=== PATIENT | male | born 1940 | race Caucasian/White ===

== ENCOUNTER 2024-11-28 15:30 | Inpatient (IN) ==
--- NOTE | 2024-11-28 17:27 | History & Physical Report ---
Date of Service November 28, 2024 Assessment & Plan (1) Urine retention: (2) NIKOLAS (acute kidney injury): (3) Cancer of parotid gland: (4) Constipation: (5) Insomnia: (6) CAD (coronary artery disease): (7) History of coronary artery bypass graft: Plan 84 year old male with advanced squamous cell carcinoma of parotid presents as a direct admission from the [facility] with abdominal pain, distension, lack of bowel movement #NIKOLAS Suspect multifactorial with urinary retention causing most important etiology. In setting of cisplatin, furosemide and telmisartan these likely just made things worse. UA reassuring for just RBC without casts seen - urine is not grossly bloody therefore will still give VTE Prophylaxis Hold telmisartan and furosemide and monitor for fluid overload #Urine retention Abdominal distention due to urine retention rather than fecal impaction. Bladder enlarged on prior CT but suspect now worse given NIKOLAS - no need to rescan. POCUS with enlarged bladder and bladder scan estimated 1600ml. Freire catheter placed on admission. 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 After discharge on 11/26 he was feeling improved however he did not have a bowel movement on day of discharge. Then on 11/27 he started getting return of his symptoms of lower abdominal pain progressively worse throughout his day. He did take x2 MiraLAX that night as directed by the discharging doctor to increase if not having bowel movements. He went for follow up with his oncologist today and due to increasing abdominal pain, lack of bowel movement, nausea and abdominal distension he was concerned for bowel obstruction and recommended admission. I spoke to his oncologist Dr Laureano earlier today and accepted him for admission. He received 1L NSS at the [facility] earlier today. Since I spoke to Dr Laureano the patient has had two small bowel movements. On CT from last admission he was noted to have a large bladder and this was told to him at the time but he cannot remember getting a bladder scan. He reports difficulty urinating and not being able to urinate today very much at all. He reports chronic terminal dribbling. He takes tamsulosin every since he had trouble removing the urinary catheter following coronary artery bypass surgery in August 2023. He denies any other urinary complaints. No fever, chills or flank pain. His last chemotherapy on discussion with Dr Laureano was cisplatin approximately 1 week ago. Allergies Allergy/AdvReac Type Severity Reaction Status Date / Time acetaminophen [From Percocet] Allergy Unknown Unverified 11/24/24 08:25 latex Allergy Unknown Unverified 11/24/24 08:25 oxycodone [From Percocet] Allergy Unknown Unverified 11/24/24 08:25 Home Medications Medication Instructions Recorded Confirmed Type aspirin 81 mg tablet,delayed 81 mg PO DAILY 01/06/24 11/05/24 History release (Adult Aspirin Regimen) coenzyme Q10 400 mg capsule (Co 400 mg PO DAILY 01/06/24 11/05/24 History Q-10) loratadine 10 mg tablet (Claritin) 10 mg PO DAILY 01/06/24 11/05/24 History evolocumab 140 mg/mL subcutaneous 140 mg subcut .q14 days #2 mL 03/18/24 11/05/24 Rx pen injector (Sen Tse) metoprolol succinate 50 mg 50 mg PO DAILY #90 tabs 03/18/24 11/05/24 Rx tablet,extended release 24 hr pantoprazole 20 mg tablet,delayed 20 mg PO PM #90 tabs 03/18/24 09/19/24 Rx release tamsulosin 0.4 mg capsule 0.4 mg PO DAILY #90 caps 03/18/24 11/05/24 Rx furosemide 40 mg tablet 40 mg PO DAILY #90 tabs 05/08/24 11/05/24 Rx potassium chloride 10 mEq 10 meq PO DAILY #90 caps 06/02/24 11/05/24 Rx capsule,extended release glucosamine 750 mg-chondroit 100 1 tab PO DAILY 07/07/24 11/05/24 History mg-msm-D3 25 kek-zokq-qys bor tablet magnesium glycinate 118 mg PO DAILY 07/07/24 11/05/24 History pktttxkp-wey-nscnz acid 0.4 1 tab PO DAILY 07/07/24 11/05/24 History mg-lycopene 300 mcg-lutein 250 mcg tablet (Centrum Silver) zinc acetate 25 mg (zinc) capsule 25 mg PO DAILY 07/07/24 11/05/24 History telmisartan 40 mg tablet 20 mg PO BID 08/19/24 11/05/24 History albuterol sulfate 90 mcg/actuation 2 inh inhalation QID PRN shortness 09/01/24 11/05/24 Rx aerosol inhaler of breath or wheezing #8.5 grams alprazolam 0.25 mg tablet 0.25 mg PO .qhs PRN sleep #90 tabs 10/09/24 11/05/24 Rx ascorbic acid (vitamin C) 1,000 mg 1 g PO BID 11/05/24 11/05/24 History capsule ciprofloxacin HCl 500 mg tablet 500 mg PO BID #8 tabs 11/26/24 Rx metronidazole 500 mg tablet 500 mg PO TID #8 tabs 11/26/24 Rx Past Med/Surg History Problem List (Updated 11/29/24 @ 07:09 by Joseluis Pabon MD) Constipation Urine retention Stercoral colitis (Acute) Transaminitis (Acute) Generalized weakness (Acute) NIKOLAS (acute kidney injury) (Acute) Syncope and collapse (Acute) Cancer of parotid gland (Chronic) CLL (chronic lymphocytic leukemia) Recurrent left pleural effusion History of nonmelanoma skin cancer Postlaminectomy syndrome GERD (gastroesophageal reflux disease) Nephrolithiasis Hypertension Hyperlipidemia Mild aortic stenosis Moderate mitral regurgitation Former smoker CKD (chronic kidney disease) Insomnia CAD (coronary artery disease) Medical History Atrial fibrillation Surgical History History of cataract surgery b/l S/P laminectomy C spine at [facility] S/P cholecystectomy History of heart artery stent History of coronary artery bypass graft Family History Mother Colorectal cancer Father Heart disease Uncle Heart disease Denies family history of Ovarian cancer Prostate cancer Myocardial infarction Breast cancer Social History Smoking Status: Former smoker Tobacco Type: Cigarettes Age Started Using Tobacco: 17; Age Quit Using Tobacco: 28; packs per day: 0.5; Second Hand Exposure: No; Do You Dip or Chew Tobacco: No; Tobacco Cessation Education Requested by Patient: No Hx Alcohol Use: No Hx Substance Use: No Preferred Language: Yi Communication Ability: Effective Hearing Ability: Normal Tearoom Host/Hostess Required: No Beliefs That Will Affect Care: None Current Living Situation: Spouse current occupation: Retired Other Information That Helps Us Care for You: No Feels Safe at Home: Yes Safety Concerns: Feels Safe At This Time Diet: regular Diet Comment: has to be careful post op with chewing; Seatbelt Use: always Assistive Devices: Cane Review of Systems Review of Systems: All systems reviewed & are unremarkable except as noted in HPI & below Physical Exam Constitutional: WD/WN, vitals as above Eyes: Right eye lid dropping (since parotid gland surgery) ENMT: Mouth: + dry oral mucous membranes Respiratory: normal respiratory effort, lungs clear to auscultation Cardiovascular: RRR, no murmur, no edema Gastrointestinal (Abdomen): Inspection/Auscultation: + abdomen distended (lower abdominal distension (resolved with freire catheter placement)) Percussion/Palpation: + abdomen tender (lower abdomen) and abdomen soft Musculoskeletal: no cyanosis or clubbing, extremities motor strength 5/5 Skin: no rashes, warm and dry Psychiatric: A+Ox3, euthymic affect Results & Data Results & Data Vital Signs (Past 12 Hours) Vital Signs Temp Pulse Resp BP Pulse Ox O2 Del Method 11/28/24 16:32 36.6 C 83 16 170/71 H 98 Room Air Laboratory Results Abnormal lab results 11/28/24 11/28/24 Range/Units 17:18 Unknown RBC 4.46 L (4.70-6.10) M/uL Hgb 12.6 L (14.0-18.0) g/dl Hct 36.6 L (42.0-52.0) % Neut # (Auto) 7.37 H (1.40-6.50) K/uL Lymph # (Auto) 0.46 L (1.20-3.40) K/uL Sodium 129 L (136-145) mmol/L Chloride 95 L (98-107) mmol/L Anion Gap 12 H (3-11) BUN 86 H (6-23) mg/dl Creatinine 4.72 H* (0.6-1.4) mg/dl Glucose 125 H (70-99(Fasting)) mg/dl Phosphorus 5.6 H (2.5-4.9) mg/dl Alkaline Phosphatase 110 H (34-104) U/L Urine Blood 3+ H (Negative) Urine RBC (Auto) >20 H (0-2) /hpf Diagnostic Findings Abdominal radiograph, one view History: Abdominal pain Comparison: 11/25/2024 Findings: Single AP view of the abdomen performed. The bowel gas pattern appears nonobstructive. Mild air throughout the large bowel. There is a nonspecific paucity of small bowel gas. No pneumatosis or portal venous gas. No abnormal calcifications project over the abdomen. No acute abnormality of the bony structures. Impression: Nonobstructive bowel gas pattern. Code Status & VTE Plan Code Status Full VTE Prophylaxis Plan VTE Prophylaxis will be ordered: Yes PG Care Time/CCT Total # of Minutes Spent Total Time Spent with Patient: Total time spent is greater than 50% in coordination of care (as documented) at patient's floor/unit and/or counseling patient: Coding Level of Care Code 91496 INT INP/OBS CARE 3/75MIN Diagnoses Urine retention R33.9 NIKOLAS (acute kidney injury) N17.9 Cancer of parotid gland C07 Constipation K59.00 Insomnia G47.00 CAD (coronary artery disease) I25.10 History of coronary artery bypass graft Z95.1
[2024-11-28 17:34] LABS: Hematocrit (blood only) 36.6 % (42.0-52.0); Hemoglobin 12.6 g/dl (14.0-18.0); Mean Corpuscular Hemoglobin 28.3 pg (25.0-34.0); Mean Corpuscular Hgb Conc 34.4 g/dL (32.0-36.0); Mean Corpuscular Volume 82.1 fL (80.0-100.0); Platelet Count 188 K/uL (130-400); RDW Coefficient of Variation 13.5 % (11.5-14.5); RDW Standard Deviation 40.4 fL (36.4-46.3); Red Blood Count 4.46 M/uL (4.70-6.10); White Blood Count 8.13 K/ul (4.8-10.8)
[2024-11-28 17:50] LABS: Eosinophils # (auto) 0.04 K/uL (0.00-0.50); Eosinophils % (auto) 0.5 %; Immature Granulocytes # (auto) 0.05 K/uL (0.01-0.20); Immature Granulocytes % (auto) 0.6 %; Lymphocytes # (auto) 0.46 K/uL (1.20-3.40); Lymphocytes % (auto) 5.7 %; Monocytes # (auto) 0.21 K/uL (0.11-0.59); Monocytes % (auto) 2.6 %; Neutrophils # (auto) 7.37 K/uL (1.40-6.50); Neutrophils % (auto) 90.6 %
[2024-11-28 18:10] LABS: Albumin Globulin Ratio 1.3 (0.9-2); BUN Creatinine Ratio 18.2 (10-20); Bilirubin,Total 0.5 mg/dl (0.2-1.0); Calcium 8.8 mg/dl (8.6-10.3); Creatinine Clr Calc Pharmacy 14.1 ml/min; Globulin 3.2 gm/dl (2.5-4.0); Magnesium 2.1 mg/dl (1.7-2.4); Phosphorus 5.6 mg/dl (2.5-4.9); Potassium 4.3 mmol/L (3.5-5.1); Total Protein 7.3 gm/dl (6.0-8.3)
[2024-11-28] MEDS: FUROSEMIDE 40 MG TAB PO SCH (18:19)
--- NOTE | 2024-11-28 18:23 | XRay Report ---
Abdominal radiograph, one view History: Abdominal pain Comparison: 11/25/2024 Findings: Single AP view of the abdomen performed. The bowel gas pattern appears nonobstructive. Mild air throughout the large bowel. There is a nonspecific paucity of small bowel gas. No pneumatosis or portal venous gas. No abnormal calcifications project over the abdomen. No acute abnormality of the bony structures. Impression: Nonobstructive bowel gas pattern. Nonspecific paucity of small bowel gas. Fluid-filled loops of bowel are not excluded. Electronically signed by Devin Montes De Oca 11-28-2024 6:22 PM
[2024-11-28 18:24] LABS: Partial Thromboplastin Time 26 Seconds (21-31); Prothrombin Time 11.1 Seconds (9.0-12.0)
[2024-11-28] MEDS: METOPROLOL SUCC 50MG EXT REL TAB PO SCH (18:48)
[2024-11-28] MEDS: SODIUM CHLORIDE 0.9% 1,000 ML IV SCH (18:49)
[2024-11-28 19:21] LABS: Appearance Urine Clear (Clear); Bacteria Urine Automated None Seen (None Seen); Bilirubin Urine Negative (Negative); Blood Urine 3+ (Negative); Cast Urine Automated 0-2 /lpf (0-2); Color Urine Yellow; Epithelial Cell Urine Auto 0-2 /hpf (0-2); Glucose Urine UA Negative (Negative); Ketones Urine Negative (Negative); Leukocyte Esterase Urine Negative (Negative); Nitrite Urine Negative (Negative); Protein Urine Negative (Negative); RBC Urine Automated >20 /hpf (0-2); Specific Gravity Urine 1.007 (1.000-1.030); Urobilinogen Urine Negative (Negative); WBC Urine Automated 0-5 /hpf (0-5); pH Urine 5.5 (4.5-7.5)
[2024-11-28 19:31] VITALS: RESP 18
[2024-11-28] MEDS ORDERED: LOSARTAN POTASSIUM 25 MG TAB PO SCH (21:00)
[2024-11-28] MEDS: HEPARIN SOD 5,000 UNIT/0.5 ML VIAL SQ SCH (21:30)
[2024-11-28] MEDS: ALPRAZolam 0.25 MG TABLET PO SCH (21:30)
[2024-11-28] MEDS: TAMSULOSIN HCL 0.4 MG CAP PO SCH (21:31)
[2024-11-28] MEDS: PANTOprazole 40 MG TAB PO SCH (21:31)
[2024-11-29 06:16] LABS: Hematocrit (blood only) 30.9 % (42.0-52.0); Hemoglobin 10.8 g/dl (14.0-18.0); Mean Corpuscular Hemoglobin 28.4 pg (25.0-34.0); Mean Corpuscular Volume 81.3 fL (80.0-100.0); Mean Platelet Volume 10.5 fL (9.4-12.4); Platelet Count 165 K/uL (130-400); RDW Coefficient of Variation 13.4 % (11.5-14.5); RDW Standard Deviation 39.7 fL (36.4-46.3); White Blood Count 6.48 K/ul (4.8-10.8)
[2024-11-29 06:26] LABS: BUN Creatinine Ratio 19.5 (10-20); Calcium 8.4 mg/dl (8.6-10.3); Creatinine Clr Calc Pharmacy 15.9 ml/min; Potassium 4.7 mmol/L (3.5-5.1)
[2024-11-29] MEDS: POLYETHYLENE (MIRALAX) 17 GM PACK PO SCH (09:07)
[2024-11-29] MEDS: ASPIRIN 81 MG ECTAB PO SCH (09:09)
[2024-11-29] MEDS: LORATADINE 10 MG TAB PO SCH (19:59)
--- NOTE | 2024-11-29 20:48 | Hospitalist Progress Note ---
Date of Service November 29, 2024 Assessment & Plan (1) Urine retention: (2) NIKOLAS (acute kidney injury): (3) Cancer of parotid gland: (4) Constipation: (5) Insomnia: (6) CAD (coronary artery disease): (7) History of coronary artery bypass graft: Plan 84 years old male with PMH of FULL CODE @ home, obesity with BMI 30.0 (height 180.34 cm; weight 97.52 kg), CAD s/p 3 vessel CABG (January 2024), CLL presumably causing recurrent left-sided pleural effusion s/p thoracenteses #1 (04/09/2024) through #7 (08/21/2024), followed by serendipitous inpatient PET scan (09/04/2024) as ordered by patient's Heme-Onc Dr. Peterson Laureano and which revealed "Three markedly FDG avid nodules/lymph nodes within the right neck, two of which are within the right parotid gland and the third likely represents a right level 2 lymph node. 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 Alee Mackey and chemotherapy (next chemotherapy session is scheduled for 12/11/2024) with [facility] Heme-Onc Dr. Peterson Laureano. Patient was subsequently admitted to the inpatient hospitalist service @ [facility] on 11/28/2024 with the following diagnoses: 1. Acute kidney injury, due to a combination of acute urinary retention, cisplatin, furosemide, and telmisartan. #Acute kidney injury Suspect multifactorial etiology with urinary retention, cisplatin, furosemide, and telmisartan. UA reassuring for just RBC without casts seen - urine is not grossly bloody therefore will still give VTE Prophylaxis Hold telmisartan and furosemide and monitor for fluid overload #Urine retention Abdominal distention due to urine retention rather than fecal impaction. Bladder enlarged on prior CT but suspect now worse given NIKOLAS - no need to rescan. POCUS with enlarged bladder and bladder scan estimated 1600ml. Freire catheter placed on admission. 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 Currently on chemoradiation #CAD s/p CABG January 2024 Continue aspirin, metoprolol, Repatha (as outpatient) VTE Prophylaxis - heparin 5000 units SQ BID Disposition - admit to med/surg Admission and Anticipated Discharge Date Admission Date: November 28, 2024 Subjective "I am ok. No complaints right now." Review of Systems Constitutional: Negative for antecedent/coincident fevers, chills, diaphoresis, cough, wheeze, sore throat, hemoptysis, chest pains, palpitations, pleurisy, nausea, vomiting, diarrhea, abdominal pain, pelvic pain, hematemesis, hematochezia, melena, hematuria, dysuria, frequency, urgency, headaches, dizziness, lightheadedness, visual changes, hearing changes, weakness, falls, syncope, trauma, travel history, sick contacts, or food/drug ingestions novel or new. All other review of systems are reported as negative by the patient on 11/29/2024. Physical Exam Constitutional: General: Comfortable, coherent, cooperative. Wide awake and alert. Not confused, lethargic, or obtunded. Patient speaks in complete, fluent, and articulate sentences without pause, cough, or wheeze, with O2 sat 97% on room air (11/29/2024, 7:12pm). HEENT: Normocephalic, atraumatic. Extra-ocular muscles intact. Pupils equally round and reactive to light. No nystagmus, gaze paresis, anisocoria, miosis, mydriasis, hyphema, scleral injection, conjunctivitis, or pterygium. No otorrhea. No pharyngeal erythema, edema, or discharge. Neck: Supple, no stridor, bruit, goiter, or hepato-jugular reflux. Jugular venous pressure is estimated to be 3 cm above the sternal angle of Jose G, which in turn, is 5 cm above the level of the right atrium; with jugu lar venous pressure estimated to be 8 cm, then, there is no jugular venous distention on 11/29/2024. Lymphatics: No cervical (anterior/posterior), supraclavicular, infraclavicular, axillary, epitrochlear, or inguinal adenopathy. Chest: Symmetric rise and fall with respirations. Non-tender to palpation. Lungs: Clear to auscultation and percussion. No audible expi ratory wheeze, egophony, pectoriloquy, increase in tactile fremitus, or flatness/dullness to percussion at the bases. Heart: Regular rate and rhythm. S1 and S2 noted. No S3 or S4 summation gallop. No tripartite friction rub. Grade II/ early systolic murmur @ LLSB without radiation to the carotids, axilla, or back, and which remains invariant in regards to the respiratory cycle. Abdomen: Soft, non-tender, non-distended. No rebound, guarding, Faria's sign, or organomegaly. Bowel sounds auscultated in all 4 quadrants. Extremities: No clubbing, cyanosis, or edema in upper extremities or lower extremities bilaterally. 2+ pedal pulses bilaterally. Skin: No decubitus ulcer or enanthem. Genito-urinary: No urethral discharge. + freire catheter with 600 cc of clear yellow urine. Neurology: Alert and oriented in regards to person, place, time, and situation. DTR+ and symmetric. 5/5 motor strength in all 4 extremities, both proximally and distally. No pronator drift. No facial droop. No dysarthria. Psychiatry: No homicidal ideation. No suicidal ideation. No flat affect; smiles appropriately. Results & Data Results & Data Vital Signs (Past 12 Hours) Vital Signs Temp Pulse Resp BP Pulse Ox O2 Del Method 11/29/24 19:12 36.8 C 70 18 141/63 H 97 Room Air 11/29/24 14:49 36.4 C L 68 18 128/61 99 Room Air Laboratory Results Abnormal lab results 11/29/24 Range/Units 05:45 RBC 3.80 L (4.70-6.10) M/uL Hgb 10.8 L (14.0-18.0) g/dl Hct 30.9 L (42.0-52.0) % BUN 82 H (6-23) mg/dl Creatinine 4.20 H D (0.6-1.4) mg/dl Glucose 120 H (70-99(Fasting)) mg/dl Calcium 8.4 L (8.6-10.3) mg/dl PG Care Time/CCT Total # of Minutes Spent Total Time Spent with Patient: Total time spent is greater than 50% in coordination of care (as documented) at patient's floor/unit and/or counseling patient: Coding Level of Care Code 48611 SUB INP/OBS CARE 2/35MIN Diagnoses Urine retention R33.9 NIKOLAS (acute kidney injury) N17.9 Cancer of parotid gland C07 Constipation K59.00 Insomnia G47.00 CAD (coronary artery disease) I25.10 History of coronary artery bypass graft Z95.1
[2024-11-30 06:55] LABS: BUN Creatinine Ratio 21.5 (10-20); Calcium 8.4 mg/dl (8.6-10.3); Creatinine Clr Calc Pharmacy 20.5 ml/min; Potassium 4.4 mmol/L (3.5-5.1)
--- NOTE | 2024-11-30 21:51 | Hospitalist Progress Note ---
Date of Service November 30, 2024 Assessment & Plan (1) Urine retention: (2) NIKOLAS (acute kidney injury): (3) Cancer of parotid gland: (4) Constipation: (5) Insomnia: (6) CAD (coronary artery disease): (7) History of coronary artery bypass graft: Plan 84 years old male with PMH of FULL CODE @ home, obesity with BMI 30.0 (height 180.34 cm; weight 97.52 kg), CAD s/p 3 vessel CABG (08/23/2023, Cardio- Thoracic Surgeon Dr. Nato Thomas, [place], [place]) on evolocumab 140mg SQ q14 days, CLL, s/p treatment with acalabrutinib (Calquence) 100mg PO daily (starting on 07/05/2024, stopping on 09/01/2024, now off Calquence as patient's WBC always remained normal even prior to initiation of Calquence), a Lloa's tyrosine kinase inhibitor, followed by recurrent left- sided pleural effusion s/p thoracenteses #1 (04/09/2024) through #7 ( 08/21/2024), followed by serendipitous inpatient PET scan (09/04/2024) as ordered by patient's Heme-Onc Dr. Peterson Laureano and which revealed "Three markedly FDG avid nodules/lymph nodes within the right neck, two of which are within the right parotid gland and the third likely represents a right level 2 lymph node. 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) with [facility] RAD ONC Dr. Alee Mackey, and cisplatin chemotherapy cycle #1 (11/20/2024, 9:00am)(next cisplatin chemotherapy cycle #2 is scheduled for 12/11/2024, 9:00am) with [facility] Heme-Onc Dr. Peterson Laureano. Patient was subsequently admitted to the inpatient hospitalist service @ [facility] on 11/28/2024 with the following diagnoses: 1. Acute kidney injury, due to a combination of acute urinary retention, ci splatin, furosemide, and telmisartan. #Acute kidney injury Suspect multifactorial etiology with urinary retention, cisplatin, furosemide, and telmisartan. UA reassuring for just RBC without casts seen - urine is not grossly bloody therefore will still give VTE Prophylaxis Hold telmisartan and furosemide and monitor for fluid overload; check repeat creatinine level in the 12/01/2024 am, and if creatinine level continues downward trend, patient will be discharged on 12/01/2024 am, so that patient may undergo next XRT session session scheduled for 12/01/2024, 12:05pm @ [facility] @ [facility]) with [facility] RAD ONC Dr. Alee Mackey. #Urine retention Abdominal distention due to urine retention rather than fecal impaction. Bladder enlarged on prior CT but suspect now worse given NIKOLAS - no need to rescan. POCUS with enlarged bladder and bladder scan estimated 1600ml. Freire catheter placed on admission. 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 s/p XRT (next XRT session is scheduled for 12/01/2024, 12:05pm @ [facility] @ [facility]) with [facility] RAD ONC Dr. Alee Mackey, and cisplatin chemotherapy cycle #1 (11/20/2024, 9:00am)(next cisplatin chemotherapy cycle #2 is scheduled for 12/11/2024, 9:00am) with [facility] Heme-Onc Dr. Peterson Laureano. #CAD s/p CABG January 2024 Continue aspirin, metoprolol, evolocumab 140mg SQ q14 days (as outpatient) VTE Prophylaxis - heparin 5000 units SQ BID Disposition - admit to med/surg Admission and Anticipated Discharge Date Admission Date: November 28, 2024 Subjective "I feel fine today. No complaints." Review of Systems Constitutional: Negative for antecedent/coincident fevers, chills, diaphoresis, cough, wheeze, sore throat, hemoptysis, chest pains, palpitations, pleurisy, nausea, vomiting, diarrhea, abdominal pain, pelvic pain, hematemesis, hematochezia, melena, hematuria, dysuria, frequency, urgency, headaches, dizziness, lightheadedness, visual changes, hearing changes, weakness, falls, syncope, trauma, travel history, sick contacts, or food/drug ingestions novel or new. All other review of systems are reported as negative by the patient on 11/30/2024. Physical Exam Constitutional: General: Comfortable, coherent, cooperative. Wide awake and alert. Not confused, lethargic, or obtunded. Patient speaks in complete, fluent, and articulate sentences without pause, cough, or wheeze, with O2 sat 96% on room air (11/30/2024, 8:42pm). HEENT: Normocephalic, atraumatic. Extra-ocular muscles intact. Pupils equally round and reactive to light. No nystagmus, gaze paresis, anisocoria, miosis, mydriasis, hyphema, scleral injection, conjunctivitis, or pterygium. No otorrhea. No pharyngeal erythema, edema, or discharge. Neck: Supple, no stridor, bruit, goiter, or hepato-jugular reflux . Jugular venous pressure is estimated to be 3 cm above the sternal angle of Jose G, which in turn, is 5 cm above the level of the right atrium; with jugular venous pressure estimated to be 8 cm, then, there is no jugular venous distention on 11/30/2024. Lymphatics: No cervical (anterior/posterior), supraclavicular, infraclavicular, axillary, epitrochlear, or inguinal adenopathy. Chest: Symmetric rise and fall with respirations. Non-tender to palpation. Lungs: Clear to auscultation and percussion. No audible expiratory wheeze, egophony, pectoriloquy, increase in tactile fremitus, or flatness/dullness to percussion at the bases. Heart: Regular rate and rhythm. S1 and S2 noted. No S3 or S4 summation gallop. No tripartite friction rub. Grade II/ early systolic murmur @ LLSB without radiation to the carotids, axilla, or back, and which remains invariant in regards to the respiratory cycle. Abdomen: Soft, non-tender, non-distended. No rebound, guarding, Faria's sign, or organomegaly. Bowel sounds auscultated in all 4 quadrants. Extremities: No clubbing, cyanosis, or edema in upper extremities or lower extremities bilaterally. 2+ pedal pulses bilaterally. Skin: No decubitus ulcer, exanthem, or enanthem. Genito-urinary: No urethral discharge. + freire catheter with 800 cc of clear ye llow urine. Neurology: Alert and oriented in regards to person, place, time, and situation. DTR+ and symmetric. 5/5 motor strength in all 4 extremities, both proximally and distally. No pronator drift. No facial droop. No dysarthria. Psychiatry: No homicidal ideation. No suicidal ideation. No flat affect; smiles appropriately Results & Data Results & Data Vital Signs (Past 12 Hours) Vital Signs Temp Pulse Resp BP Pulse Ox O2 Del Method 11/30/24 20:42 36.9 C 76 18 160/79 H 96 Room Air 11/30/24 14:59 36.5 C 71 18 158/75 H 98 Room Air Laboratory Results Creatinine 4.72 (11/28/2024, 5:18pm). Creatinine 4.20 (11/29/2024, 5:45am). Creatinine 3.25 (11/30/2024, 6:10am). PG Care Time/CCT Total # of Minutes Spent Total Time Spent with Patient: Total time spent is greater than 50% in coordination of care (as documented) at patient's floor/unit and/or counseling patient: Coding Level of Care Code 30275 SUB INP/OBS CARE 2/35MIN Diagnoses Urine retention R33.9 NIKOLAS (acute kidney injury) N17.9 Cancer of parotid gland C07 Constipation K59.00 Insomnia G47.00 CAD (coronary artery disease) I25.10 History of coronary artery bypass graft Z95.1
[2024-12-01 07:04] VITALS: BP 166/76; PULSE 75; TEMP 98.1; O2SAT 93
[2024-12-01 08:27] LABS: BUN Creatinine Ratio 22.5 (10-20); Calcium 8.5 mg/dl (8.6-10.3); Creatinine Clr Calc Pharmacy 26.8 ml/min; Potassium 4.3 mmol/L (3.5-5.1)
--- NOTE | 2024-12-01 15:03 | Discharge Summary ---
Discharge Summary Date of Service December 01, 2024 Principal Dx & Hospital Course #1 = Principal Diagnosis (1) Urine retention: (2) NIKOLAS (acute kidney injury): (3) Cancer of parotid gland: (4) Constipation: (5) Insomnia: (6) CAD (coronary artery disease): (7) History of coronary artery bypass graft: Plan 84 years old male with PMH of FULL CODE @ home, obesity with BMI 30.0 (height 180.34 cm; weight 97.52 kg), CAD s/p 3 vessel CABG (08/23/2023, Cardio- Thoracic Surgeon Dr. Nato Thomas, [place], [place]) on evolocumab 140mg SQ q14 days, CLL, s/p treatment with acalabrutinib (Calquence) 100mg PO daily (starting on 07/05/2024, stopping on 09/01/2024, now off Calquence as patient's WBC always remained normal even prior to initiation of Calquence), a Lola's tyrosine kinase inhibitor, followed by recurrent left- sided pleural effusion s/p thoracenteses #1 (04/09/2024) through #7 (08/21/2024), followed by serendipitous inpatient PET scan (09/04/2024) as ordered by patient's Heme-Onc Dr. Peterson Laureano and which revealed "Three markedly FDG avid nodules/lymph nodes within the right neck, two of which are within the right parotid gland and the third likely represents a right level 2 lymph node. 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 Alee Mackey, and cisplatin chemotherapy cycle #1 (11/20/2024, 9:00am)(next cisplatin chemotherapy cycle #2 is scheduled for 12/11/2024, 9:00am) with [facility] Heme-Onc Dr. Peterson Laureano. Patient was subsequently admitted to the inpatient hospitalist service @ [facility] on 11/28/2024 with the following diagnoses: 1. Acute kidney injury, due to a combination of acute urinary retention, cisplatin, home-scheduled furosemide 40mg PO daily, and home-scheduled telmisartan 40mg PO bid. The following medical issues were addressed while the patient remained in [facility] from 11/28/2024 through 12/01/2024: #Acute kidney injury, RESOLVING well. Suspect multifactorial etiology with urinary retention, cisplatin, furosemide, and telmisartan. UA reassuring for just RBC without casts seen - urine is not grossly bloody therefore will still give VTE Prophylaxis Held OFF home-scheduled telmisartan 40mg PO bid and furosemide 40mg PO daily while patient remained in [facility]. Subsequently, acute kidney injury is RESOLVING well, as shown by a progressive decline in creatinine levels: cf., creatinine 4.72 mg/dL (11/28/2024, 5:18pm). cf., creatinine 4.20 mg/dL (11/29/2024, 5:45am). cf., creatinine 3.25 mg/dL (11/30/2024, 6:10am). cf., creatinine 2.49 mg/dL (12/01/2024, 6:11am). 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 Alee Mackey. Patient will then go back to his home and will NOT resume his home-scheduled telmisartan 40mg PO bid and furosemide 40mg PO daily on arrival back to his home on 12/01/2024. Instead, patient was advised to undergo repeat creatinine level testing within 5-7 days of hospital discharge, and which may be performed by his PCP Dr. Catarina Johnson, in order to affirm continued resolution of acute kidney injury. Patient reports that he will comply with this recommendation. #Acute urinary retention, ONGOING. Abdominal distention due to urine retention rather than fecal impaction. Patient was subsequently treated with freire catheter in [facility] ER on 11/27/2024 and continues with freire catheter on hospital discharge home on 12/01/2024. Patient was advised to follow up with his PCP Dr. Catarina Johnson within 5-7 days of hospital discharge regarding how long freire catheter should remain in situ as patient already anticipates that he may suffer from urine retention until 12/31/2024, which is the date on which patient will receive his third and final dose of cisplatin chemotherapy with his Heme-Onc Dr. Peterson Laureano. In the interim, I advised the patient to maintain freire catheter in situ through 12/31/2024 with voiding trial on or after 12/31/2024, as cisplatin chemotherapy is deemed to be the principal culprit for patient's acute kidney injury, if not his acute urinary retention. In addition, patient was maintained on expulsive agent tamsulosin 0.4mg PO bid x 6 doses (11/28/2024 - 12/01/2024, 7:52am) while in [facility]. Patient will resume his home- scheduled tamsulosin 0.4mg PO daily on hospital discharge home on 12/01/2024. #Constipation, RESOLVED. Suspect his bowels were somewhat affected by his large bladder; subsequently, constipation improved after freire catheter insertion in [facility] ER on 11/27/2024. #Advanced squamous cell carcinoma of parotid, ONGOING. s/p surgery. s/p XRT (next XRT session is scheduled for 12/01/2024, 12:05pm @ [facility] @ [facility]) with [facility] RAD ONC Dr. Alee Mackey, and cisplatin chemotherapy cycle #1 (11/20/2024, 9:00am)(next cisplatin chemotherapy cycle #2 is scheduled for 12/11/2024, 9:00am) with [facility] Heme-Onc Dr. Peterson Laureano. #CAD s/p CABG January 2024 Patient received secondary prophylaxis against CAD utilizing his home-scheduled aspirin 81mg PO daily and metoprolol succinate 50mg PO daily while in [facility]. Patient will continue both home-scheduled medications on hospital discharge home on 12/01/2024. Patient did not receive secondary prophylaxis against CAD utilizing his home-scheduled evolocumab 140mg SQ q14 days as this medication is not available on hospital formulary. Patient will resume his home-scheduled evolocumab 140mg SQ q14 days on hospital discharge home on 12/01/2024. VTE Prophylaxis - heparin 5000 units SQ BID Disposition. Code status, FULL CODE @ home. ACLS was never administered. There were no adverse events noted with this hospitalization. Condition of patient remains fair. 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 Alee Mackey. Patient will then go back to his home and follow up with his PCP Dr. Catarina Johnson within 5-7 days of hospital discharge for repeat creatinine level testing. Patient will also follow up with his Heme-Onc Dr. Peterson Laureano within 5-7 days of hospital discharge to discuss cisplatin-associated urticaria (which is noted for the first time on the right side of patient's face on hospital discharge date 12/01/2024). Patient will also follow up with his RAD ONC Dr. Alee Mackey on 12/01/2024 to discuss XRT-associated dermatitis (which is noted for the first time on the right side of patient's face on hospital discharge date 12/01/2024). Patient reports that he will comply with all of the above recommendations. Admission HPI Per Admitting Provider Chavo De La O is an 84 year old male with advanced squamous cell carcinoma of parotid s/p surgery on chemo/radiation who [facility] recent hospitalization for stercoral colitis requiring manual disimpaction. After discharge on 11/26 he was feeling improved however he did not have a bowel movement on day of discharge. Then on 11/27 he started getting return of his symptoms of lower abdominal pain progressively worse throughout his day. He did take x2 MiraLAX that night as directed by the discharging doctor to increase if not having bowel movements. He went for follow up with his oncologist today and due to increasing abdominal pain, lack of bowel movement, nausea and abdominal distension he was concerned for bowel obstruction and recommended admission. I spoke to his oncologist Dr Laureano earlier today and accepted him for admission. He received 1L NSS at the [facility] earlier today. Since I spoke to Dr Laureano the patient has had two small bowel movements. On CT from last admission he was noted to have a large bladder and this was told to him at the time but he cannot remember getting a bladder scan. He reports difficulty urinating and not being able to urinate today very much at all. He reports chronic terminal dribbling. He takes tamsulosin every since he had trouble removing the urinary catheter following coronary artery bypass surgery in August 2023. He denies any other urinary complaints. No fever, chills or flank pain. His last chemotherapy on discussion with Dr Laureano was cisplatin approximately 1 week ago. Discharge Exam Constitutional General: Comfortable, coherent, cooperative. Wide awake and alert. Not confused, lethargic, or obtunded. Patient speaks in complete, fluent, and articulate sentences without pause, cough, or wheeze, with O2 sat 93% on room air (12/01/2024, 7:02am). HEENT: Normocephalic, atraumatic. Extra-ocular muscles intact. Pupils equally round and reactive to light. No nystagmus, gaze paresis, anisocoria, miosis, mydriasis, hyphema, scleral injection, conjunctivitis, or pterygium. No otorrhea. No pharyngeal erythema, edema, or discharge. Neck: Supple, no stridor, bruit, goiter, or hepato-jugular reflux. Jugular venous pressure is estimated to be 3 cm above the sternal angle of Jose G, which in turn, is 5 cm above the level of the right atrium; with jugular venous pressure estimated to be 8 cm, then, there is no jugular venous distention on 12/01/2024. Lymphatics: No cervical (anterior/posterior), supraclavicular, infraclavicular, axillary, epitrochlear, or inguinal adenopathy. Chest: Symmetric rise and fall with respirations. Non-tender to palpation. Lungs: Clear to auscultation and percussion. No audible expiratory wheeze, egophony, pectoriloquy, increase in tactile fremitus, or flatness/dullness to percussion at the bases. Heart: Regular rate and rhythm. S1 and S2 noted. No S3 or S4 summation gallop. No tripartite friction rub. Grade II/ early systolic murmur @ LLSB without radiation to the carotids, axilla, or back, and which remains invariant in regards to the respiratory cycle. Abdomen: Soft, non-tender, non-distended. No rebound, guarding, Faria's sign, or organomegaly. Bowel sounds auscultated in all 4 quadrants. Extremities: No clubbing, cyanosis, or edema in upper extremities or lower extremities bilaterally. 2+ pedal pulses bilaterally. Skin: No decubitus ulcer or enanthem. Very mild exanthem involving puncta of erythema on right side of face (e.g., forehead and cheek, sparing the nose, nasal bridge, eye, conjunctiva, philtrum, lip) with excoriation, but no lichenification on 12/01/2024. No ulceration, edema, induration, warmth, tenderness, crepitus, fluctuance, discharge (sanguineous, serous, suppurative), malodor, or lymphangitic streaking. Genito-urinary: No urethral discharge. + freire catheter with 700 cc of clear yellow urine on 12/01/2024. Neurology: Alert and oriented in regards to person, place, time, and situation. DTR+ and symmetric. 5/5 motor strength in all 4 extremities, both proximally and distally. No pronator drift. No facial droop. No dysarthria. Psychiatry: No homicidal ideation. No suicidal ideation. No flat affect; smiles appropriately Discharge Plan Discharge Items Patient Disposition: Home - Self-Care Reason For Visit: NIKOLAS,URINE RETENTION Discharge Diagnosis: NIKOLAS, URINE RETENTION Condition on Discharge: Fair Activity: Resume your previous activity Lifting: Gradually increase as tolerated Bathing: No limitations Sexual Activity: When tolerated Exercise/Sports: Gradually increase as tolerated Driving/Machine Use: No limitations Weightbearing: Full weightbearing Non-emergency contact: Primary Care Provider Call non-emergency contact if: you have any medication questions Follow-up/Referrals: Alee Mackey MD [Physician] - (See Dr. Alee Mackey on 12/01/2024 during/after radiation therapy.) Catarina Johnson DO [Primary Care Provider] - 12/09/24 1:30 pm Peterson Laureano MD [Physician] - (See Dr. Peterson Laureano within 5-7 days.) Diet: Heart Healthy Addtl Attending Provider Instructions: See your PCP Dr. Catarina Johnson, your Heme-Onc Dr. Peterson Laureano, and your RAD ONC Dr. Alee Mackey, all within 5-7 days of hospital discharge. Pending Studies at Discharge: Yes Studies:: Repeat creatinine level within 5-7 days of hospital discharge. Stand-Alone Forms: [facility], Smoking Cessation Medications and DC Order Prescriptions: Continued Repatha SureClick 140 mg/mL pen injector 140 mg subcut .q14 days Qty: 2 3RF metoprolol succinate 50 mg tablet extended release 24 hr 50 mg PO DAILY Qty: 90 3RF pantoprazole 20 mg tablet,delayed release (DR/EC) 20 mg PO PM Qty: 90 3RF tamsulosin 0.4 mg capsule 0.4 mg PO DAILY Qty: 90 3RF potassium chloride 10 mEq capsule, extended release 10 meq PO DAILY Qty: 90 3RF alprazolam 0.25 mg tablet 0.25 mg PO .qhs PRN (Reason: sleep) Qty: 90 0RF [id number]-sae bor 750 mg-100 mg- 25 mcg tablet 1 tab PO DAILY magnesium glycinate 118 mg magnesium capsule 118 mg PO DAILY Centrum Silver 0.4 mg-300 mcg- 250 mcg tablet 1 tab PO DAILY zinc acetate 25 mg (zinc) capsule 25 mg PO DAILY aspirin [Adult Aspirin Regimen] 81 mg tablet,delayed release (DR/EC) 81 mg PO DAILY coenzyme Q10 [Co Q-10] 400 mg capsule 400 mg PO DAILY loratadine [Claritin] 10 mg tablet 10 mg PO DAILY ascorbic acid (vitamin C) 1,000 mg capsule 1 g PO BID albuterol sulfate 90 mcg/actuation HFA aerosol inhaler 2 inh inhalation QID PRN (Reason: shortness of breath or wheezing) Qty: 8.5 2RF Discontinued furosemide 40 mg tablet 40 mg PO DAILY Qty: 90 3RF telmisartan 40 mg tablet 20 mg PO BID metronidazole 500 mg Tablet 500 mg PO TID Qty: 8 0RF ciprofloxacin HCl 500 mg Tablet 500 mg PO BID Qty: 8 0RF No Action ondansetron HCl 8 mg tablet 8 mg PO Q8H PRN prochlorperazine maleate [Compazine] 10 mg tablet 10 mg PO Q6H PRN Discharge Orders: Discharge Order (Routine); Ordered 12/01/24 Ordered By: Casey Garza/Other Patient Handouts: Urinary Catheter Bag Empty Clean, Indwelling Urinary Catheter Dc, Leg Bag Care Dc Admission Data Admit Date/Time: 11/28/24 16:30 Attending Provider: Casey Nichols Admit Provider: Joseluis Pabon Primary Care Provider: Catarina Johnson Other Interventions: Discharge Summary Assessment (RN) Last Done: 12/01/24 11:35 Hospital Stay Data Pending Results Patient Have Any Pending Studies at Discharge: Yes Discharge Instructions Given to Patient (Per Discharging Provider) See your PCP Dr. Catarina Johnson, your Heme-Onc Dr. Peterson Laureano, and your RAD ONC Dr. Alee Mackey, all within 5-7 days of hospital discharge. Total Time Total Time Spent Total Time Spent (In Minutes): 35 Coding Level of Care Code 11075 INP/OBS DISCH >30 MIN Diagnoses Urine retention R33.9 NIKOLAS (acute kidney injury) N17.9 Cancer of parotid gland C07 Constipation K59.00 Insomnia G47.00 CAD (coronary artery disease) I25.10 History of coronary artery bypass graft Z95.1
== END 2024-12-01 12:00 | disposition home or self-care (01) | DRG 683 ==
LOC: SUATTDRO 16:30 → 3W 16:30

== ENCOUNTER 2025-01-04 22:50 | Inpatient (IN) ==
--- NOTE | 2025-01-04 23:01 | Emergency Department Note ---
Impression & Plan Dizziness, Acute dehydration, History of parotid cancer, Syncope ED Provider Note NAME: FABIANO PALMER AGE: 84 SEX: M : 1940 ARRIVES VIA: Ambulance INFORMANT: Patient, ED PROVIDER(S): Ravin Alarcon MD CHIEF COMPLAINT: Dizziness, lightheadedness, possible syncope MEDICAL DECISION MAKING: Patient presents with the above. IV fluids deferred as the patient's vital signs are stable at the bedside and the patient is going to be admitted as the patient was just discharged for similar symptoms. Patient's blood work shows a white count of 4.8 with hemoglobin 12.5 normal platelet count kidney function with a creat of 1.42 which is around what it was when he presented earlier today. Blood sugar 141. Patient reportedly had eaten upon arriving home. Patient's EKG does not show obvious arrhythmia. I did speak with the on-call hospital service Dr. Gaviria and the patient was admitted to the medicine service. Discussion w/ other healthcare providers: Dr. Gaviria inpatient medicine service Prior /Outside records reviewed: None Differential diagnosis: Benign positional vertigo, dehydration, hypovolemia, anemia, infection, hypoglycemia, electrolyte abnormalities, arrhythmia, tox among others were considered. Diagnostics, as interpreted by me: ECG: Normal sinus rhythm, rate of 65, normal intervals no obvious STEMI. Cardiac monitoring: An order was placed for continuous cardiac monitoring. The monitor shows a rate of 65 with sinus rhythm. Patient was placed on pulse oximetry Medical decision rules: None Imaging studies: None HPI: Patient presents due to concern for lightheadedness and dizziness. Patient had been seen by myself earlier in the day and discharged for similar symptoms. The patient states though that when he was seated he was experiencing lightheadedness and dizziness and may have passed out according to his . Patient states that when he returned home he did drink water and had a protein shake. The patient denies any vomiting or diarrhea no chest pain or shortness of breath. PAST MEDICAL HISTORY: See Below PAST SURGICAL HISTORY: See Below SOCIAL HISTORY: See Below HOME MEDICATIONS: See Below ALLERGIES: See Below VITALS: See Below PHYSICAL EXAMINATION: GENERAL: NAD, non-toxic. EYE EXAM: Normal conjunctiva. PERRL, no anisocoria and EOM's grossly intact w/o pain. OROPHARYNX: Moist mucus membranes, grossly normal dentition. NECK: Trachea midline, no stridor. LUNGS: Clear to auscultation. Normal chest wall mechanics. HEART: NSR, no MRG. ABDOMEN: Abdomen soft, non-tender, no masses, no rebound or guarding. BACK: No CVA TTP. SKIN: No rashes and no bruising. UPPER EXTREMITIES: Upper extremities are grossly normal. LOWER EXTREMITIES: Grossly normal, no edema. NEURO EXAM: Awake and alert, follows commands, no obvious facial asymmetry, normal speech, moves all 4 extremities. Past Med/Surg History Problem List (Updated 01/05/25 @ 00:06 by Ravin Alarcon MD) Syncope (Acute) History of parotid cancer (Acute) Acute dehydration (Acute) Dizziness (Acute) Hypomagnesemia (Acute) Acute dehydration (Acute) Dizziness (Acute) Constipation Stercoral colitis (Acute) Syncope and collapse (Acute) Cancer of parotid gland (Chronic) CLL (chronic lymphocytic leukemia) Recurrent left pleural effusion Postlaminectomy syndrome Nephrolithiasis (Chronic) Mild aortic stenosis Moderate mitral regurgitation Former smoker CKD (chronic kidney disease) Insomnia Medical History Transaminitis NIKOLAS (acute kidney injury) History of nonmelanoma skin cancer GERD (gastroesophageal reflux disease) Hypertension Hyperlipidemia CAD (coronary artery disease) Atrial fibrillation Surgical History History of cataract surgery b/l S/P laminectomy C spine at [facility] S/P cholecystectomy History of heart artery stent History of coronary artery bypass graft Family History Mother Colorectal cancer Father Heart disease Uncle Heart disease Denies family history of Ovarian cancer Prostate cancer Myocardial infarction Breast cancer Social History Smoking Status: Former smoker Tobacco Type: Cigarettes Age Started Using Tobacco: 17; Age Quit Using Tobacco: 28; packs per day: 0.5; Second Hand Exposure: No; Do You Dip or Chew Tobacco: No; Hx Alcohol Use: No Hx Substance Use: No Preferred Language: Yakut Communication Ability: Effective Hearing Ability: Normal Motor Vehicle Operator Road Supervisor Required: No Beliefs That Will Affect Care: None Current Living Situation: Spouse current occupational status: retired current occupation: Retired How many Children do You have: 4 Feels Safe at Home: Yes Childhood Exposure to Second-Hand Smoke: Yes Diet: regular Diet Comment: has to be careful post op with chewing; caffeine: Yes during the past year weight has: decreased > 10 lbs Dental Care, Regularly: Yes Physical Activity Frequency: 5-6 Times per Week Seatbelt Use: sometimes Assistive Devices: Cane Allergies Allergies Allergy/AdvReac Type Severity Reaction Status Date / Time acetaminophen [From Percocet] Allergy Unknown Verified 12/29/24 10:25 latex Allergy Unknown Verified 12/29/24 10:25 oxycodone [From Percocet] Allergy Unknown Verified 12/29/24 10:25 Home Meds Home Medications Medication Instructions Recorded Confirmed aspirin 81 mg tablet,delayed 81 mg PO DAILY 01/06/24 12/21/24 release (Adult Aspirin Regimen) coenzyme Q10 400 mg capsule (Co 400 mg PO DAILY 01/06/24 12/21/24 Q-10) loratadine 10 mg tablet (Claritin) 10 mg PO DAILY 01/06/24 12/21/24 glucosamine 750 mg-chondroit 100 1 tab PO DAILY 07/07/24 12/21/24 mg-msm-D3 25 iqn-qgej-owh bor tablet magnesium glycinate 118 mg PO DAILY 07/07/24 12/21/24 akgsuqzc-qyo-pkbhc acid 0.4 1 tab PO DAILY 07/07/24 12/21/24 mg-lycopene 300 mcg-lutein 250 mcg tablet (Centrum Silver) zinc acetate 25 mg (zinc) capsule 25 mg PO DAILY 07/07/24 12/21/24 ascorbic acid (vitamin C) 1,000 mg 1 g PO BID 11/05/24 12/21/24 capsule ondansetron HCl 8 mg tablet 8 mg PO Q8H PRN Nausea And Vomiting 12/01/24 12/21/24 prochlorperazine maleate 10 mg 10 mg PO Q6H PRN Nausea And 12/01/24 12/21/24 tablet (Compazine) Vomiting alprazolam 0.25 mg tablet 0.25 mg PO HS PRN sleep 12/16/24 12/29/24 ciprofloxacin HCl 500 mg tablet 500 mg PO BID 12/16/24 12/22/24 evolocumab 140 mg/mL subcutaneous 140 mg subcut Q14D 12/16/24 12/22/24 pen injector (Sen Tse) Previous Rx's Medication Instructions Recorded metoprolol succinate 50 mg 50 mg PO DAILY #90 tabs 03/18/24 tablet,extended release 24 hr pantoprazole 20 mg tablet,delayed 20 mg PO PM #90 tabs 03/18/24 release potassium chloride 10 mEq 10 meq PO DAILY #90 caps 06/02/24 capsule,extended release albuterol sulfate 90 mcg/actuation 2 inh inhalation QID PRN shortness 09/01/24 aerosol inhaler of breath or wheezing #8.5 grams furosemide 20 mg tablet 20 mg PO DAILY #30 tabs 12/04/24 tamsulosin 0.4 mg capsule 0.8 mg (2 x 0.4 mg) PO DAILY #180 12/19/24 caps Results & Data (ED) Vital Signs Vital Signs - 24 hr 01/04/25 22:57 01/04/25 23:04 01/04/25 23:06 Temperature 36.5 C Temperature Source Oral Pulse Rate 65 67 Respiratory Rate 20 Respiratory Effort / Characteristics Non-Labored Spontaneous Respiratory Depth Normal Blood Pressure 129/85 Blood Pressure Mean 99 Pulse Oximetry 97 99 Oxygen Delivery Method Room Air Room Air Sepsis Recent Fever Within 48 Hours No Sepsis New/Unexplained Change in Mental Status N/A Sepsis Action Taken by Nursing No Action Required 01/04/25 23:30 Temperature Temperature Source Pulse Rate 71 Respiratory Rate 20 Respiratory Effort / Characteristics Respiratory Depth Blood Pressure 144/93 H Blood Pressure Mean 104 Pulse Oximetry 98 Oxygen Delivery Method Sepsis Recent Fever Within 48 Hours Sepsis New/Unexplained Change in Mental Status Sepsis Action Taken by Jail Medications Current Medication List: was personally reviewed by me Laboratory Data Attestation: I reviewed the patient's lab results. 01/04/25 23:00 01/04/25 23:00 Lab Results 01/04/25 Range/Units 23:00 WBC 4.80 (4.8-10.8) K/ul RBC 4.28 L (4.70-6.10) M/uL Hgb 12.5 L (14.0-18.0) g/dl Hct 37.1 L (42.0-52.0) % MCV 86.7 (80.0-100.0) fL MCH 29.2 (25.0-34.0) pg MCHC 33.7 (32.0-36.0) g/dL RDW Std Deviation 48.2 H (36.4-46.3) fL RDW Coeff of Arian 15.3 H (11.5-14.5) % Plt Count 186 (130-400) K/uL MPV 9.9 (9.4-12.4) fL Immature Gran % (Auto) 0.2 % Neut % (Auto) 76.1 % Lymph % (Auto) 12.9 % [place] % (Auto) 7.9 % Eos % (Auto) 2.7 % Baso % (Auto) 0.2 % Neut # (Auto) 3.65 (1.40-6.50) K/uL Lymph # (Auto) 0.62 L (1.20-3.40) K/uL [place] # (Auto) 0.38 (0.11-0.59) K/uL Eos # (Auto) 0.13 (0.00-0.50) K/uL Baso # (Auto) 0.01 (0.00-0.20) K/uL Immature Gran # (Auto) 0.01 (0.01-0.20) K/uL Sodium 137 (136-145) mmol/L Potassium 4.4 (3.5-5.1) mmol/L Chloride 103 (98-107) mmol/L Carbon Dioxide 27 (21-32) mmol/L Anion Gap 7 (3-11) BUN 36 H (6-23) mg/dl Creatinine 1.42 H (0.6-1.4) mg/dl Est Cr Clr Drug Dosing 42.0 ml/min eGFR 49.03 BUN/Creatinine Ratio 25.4 H (10-20) Glucose 141 H (70-99(Fasting)) mg/dl Calcium 9.7 (8.6-10.3) mg/dl Administered Medications Lactated Ringer's (Lr) 500 mls @ 999 mls/hr IV .Q31M ONE Stop: 01/05/25 00:14 Last Admin: 01/04/25 23:52 Dose: 999 mls/hr Documented By: GRABIEL Discharge Plan Visit Data Chief Complaint: Weakness Stated Complaint: WEAKNESS, DEHYDRATED ED Provider: Ravin Alarcon Discharge Problem: Dizziness, Acute dehydration, History of parotid cancer, Syncope Patient Disposition: Admitted As Inpatient Condition: Good Forms Stand Alone Forms: My [facility] Prescriptions Prescriptions: No Action ondansetron HCl 8 mg tablet 8 mg PO Q8H PRN (Reason: Nausea And Vomiting) prochlorperazine maleate [Compazine] 10 mg tablet 10 mg PO Q6H PRN (Reason: Nausea And Vomiting) metoprolol succinate 50 mg tablet extended release 24 hr 50 mg PO DAILY Qty: 90 3RF pantoprazole 20 mg tablet,delayed release (DR/EC) 20 mg PO PM Qty: 90 3RF potassium chloride 10 mEq capsule, extended release 10 meq PO DAILY Qty: 90 3RF Rx Instructions: Unable to verify w/ pt at this date/time. Not on file w/ pharmacy as recent fill. furosemide 20 mg tablet 20 mg PO DAILY Qty: 30 2RF tamsulosin 0.4 mg capsule 0.8 mg PO DAILY Qty: 180 3RF jmaa-ebhmy-vca-D3-hyal-sae bor 750 mg-100 mg- 25 mcg tablet 1 tab PO DAILY Rx Instructions: Unable to verify OTC meds at this date/time. magnesium glycinate 118 mg magnesium capsule 118 mg PO DAILY Rx Instructions: Unable to verify OTC meds at this date/time. Centrum Silver 0.4 mg-300 mcg- 250 mcg tablet 1 tab PO DAILY Rx Instructions: Unable to verify OTC meds at this date/time. zinc acetate 25 mg (zinc) capsule 25 mg PO DAILY Rx Instructions: Unable to verify OTC meds at this date/time. aspirin [Adult Aspirin Regimen] 81 mg tablet,delayed release (DR/EC) 81 mg PO DAILY Rx Instructions: Unable to verify OTC meds at this date/time. coenzyme Q10 [Co Q-10] 400 mg capsule 400 mg PO DAILY Rx Instructions: Unable to verify OTC meds at this date/time. loratadine [Claritin] 10 mg tablet 10 mg PO DAILY Rx Instructions: Unable to verify OTC meds at this date/time. ascorbic acid (vitamin C) 1,000 mg capsule 1 g PO BID Rx Instructions: Unable to verify OTC meds at this date/time. albuterol sulfate 90 mcg/actuation HFA aerosol inhaler 2 inh inhalation QID PRN (Reason: shortness of breath or wheezing) Qty: 8.5 2RF ciprofloxacin HCl 500 mg tablet 500 mg PO BID Rx Instructions: Start Date 12/13/24 x7 day supply alprazolam 0.25 mg tablet 0.25 mg PO HS PRN (Reason: sleep) Repatha SureClick 140 mg/mL pen injector 140 mg subcut Q14D Referrals Referrals: Catarina Johnson DO [Primary Care Provider] - Discharge Problem: Syncope Qualifiers: Syncope type: unspecified Qualified Code(s): R55 - Syncope and collapse
[2025-01-04 23:12] LABS: Hematocrit (blood only) 37.1 % (42.0-52.0); Hemoglobin 12.5 g/dl (14.0-18.0); Immature Granulocytes # (auto) 0.01 K/uL (0.01-0.20); Immature Granulocytes % (auto) 0.2 %; Mean Corpuscular Hemoglobin 29.2 pg (25.0-34.0); Mean Corpuscular Volume 86.7 fL (80.0-100.0); Platelet Count 186 K/uL (130-400); RDW Standard Deviation 48.2 fL (36.4-46.3); Red Blood Count 4.28 M/uL (4.70-6.10); White Blood Count 4.80 K/ul (4.8-10.8)
[2025-01-04 23:28] LABS: Anion Gap 7.0 (3-11); Blood Urea Nitrogen 36.0 mg/dl (6-23); Calcium 9.7 mg/dl (8.6-10.3); Carbon Dioxide 27.0 mmol/L (21-32); Chloride 103.0 mmol/L (98-107); Creatinine Clr Calc Pharmacy 42.0 ml/min; Glucose 141.0 mg/dl (70-99(Fasting)); Potassium 4.4 mmol/L (3.5-5.1); Sodium 137.0 mmol/L (136-145)
[2025-01-04] MEDS: LACTATED RINGER'S 500 ML IV ONE (23:52)
--- NOTE | 2025-01-04 23:54 | History & Physical Report ---
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 Last chemotherapy is on 01/01. stated felt nausea and lightheadedness since last night. Had a visit Ed early this afternoon due to similar complaint, resolved after 2 boluses of 1L NSS. Patient came back after 2 hours due to lightheadedness and dizziness on the stairs. Denied any fall, denied LOC, denied any chest pain or chest pressure. No palpitations. Patient states having poor po due to nausea. Patient with history of Afib s/p Maze procedure with no history of recurrence, he is off anticoagulation. Patient dry on exam. Patient will be admitted for IV fluids and monitoring. #Dehydration / Pre syncope / Renal insufficiency - Patient with lightheadedness, diazines and pre syncope. Poor PO. Dehydrated on exam - s/P 2L of NSS early this afternoon - Lab remarkable for Cr. 1.43 (baseline 1.30), hypomagnesemia - EKG - sinus rhythm, no St changes - 500ml bolus of LR, will continue LR 100 ml/hr for 1L - hold Furosemide until am revaluation - Labs in the am #Urinary retention - Patient on Hwang catheter. No gross hematuria - UA ordered - continue tamsulosin - Plan for cystoscopy outpatient later this week with urology #Advanced squamous cell carcinoma of parotid s/p surgery. 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 Last chemotherapy is on 01/01. stated felt nausea and lightheadedness since last night. Had a visit Ed early this afternoon due to similar complaint, resolved after 2 boluses of 1L NSS. Patient came back after 2 hours due to lightheadedness and dizziness on the stairs. Denied any fall, denied LOC, denied any chest pain or chest pressure. No palpitations. Patient states having poor po due to nausea. Patient with history of Afib s/p Maze procedure with no history of recurrence, he is off anticoagulation. Patient dry on exam. Patient will be admitted for IV fluids and monitoring. Allergies Allergy/AdvReac Type Severity Reaction Status Date / Time acetaminophen [From Percocet] Allergy Unknown Verified 12/29/24 10:25 latex Allergy Unknown Verified 12/29/24 10:25 oxycodone [From Percocet] Allergy Unknown Verified 12/29/24 10:25 Home Medications Medication Instructions Recorded Confirmed Type aspirin 81 mg tablet,delayed 81 mg PO DAILY 01/06/24 12/21/24 History release (Adult Aspirin Regimen) coenzyme Q10 400 mg capsule (Co 400 mg PO DAILY 01/06/24 12/21/24 History Q-10) loratadine 10 mg tablet (Claritin) 10 mg PO DAILY 01/06/24 12/21/24 History metoprolol succinate 50 mg 50 mg PO DAILY #90 tabs 03/18/24 12/21/24 Rx tablet,extended release 24 hr pantoprazole 20 mg tablet,delayed 20 mg PO PM #90 tabs 03/18/24 12/21/24 Rx release potassium chloride 10 mEq 10 meq PO DAILY #90 caps 06/02/24 12/21/24 Rx capsule,extended release glucosamine 750 mg-chondroit 100 1 tab PO DAILY 07/07/24 12/21/24 History mg-msm-D3 25 jqy-lttb-txu bor tablet magnesium glycinate 118 mg PO DAILY 07/07/24 12/21/24 History eqtlaxkd-ajw-waqip acid 0.4 1 tab PO DAILY 07/07/24 12/21/24 History mg-lycopene 300 mcg-lutein 250 mcg tablet (Centrum Silver) zinc acetate 25 mg (zinc) capsule 25 mg PO DAILY 07/07/24 12/21/24 History albuterol sulfate 90 mcg/actuation 2 inh inhalation QID PRN shortness 03/03/25 06/22/25 Rx aerosol inhaler of breath or wheezing #8.5 grams ascorbic acid (vitamin C) 1,000 mg 1 g PO BID 11/05/24 12/21/24 History capsule ondansetron HCl 8 mg tablet 8 mg PO Q8H PRN Nausea And Vomiting 12/01/24 5 History prochlorperazine maleate 10 mg 10 mg PO Q6H PRN Nausea And 12/01/24 12/21/24 History tablet (Compazine) Vomiting furosemide 20 mg tablet 20 mg PO DAILY #30 tabs 12/04/24 12/22/24 Rx alprazolam 0.25 mg tablet 0.25 mg PO HS PRN sleep 12/16/24 12/29/24 History ciprofloxacin HCl 500 mg tablet 500 mg PO BID 12/16/24 12/22/24 History evolocumab 140 mg/mL subcutaneous 140 mg subcut Q14D 12/16/24 12/22/24 History pen injector (Repatha SureClick) tamsulosin 0.4 mg capsule 0.8 mg (2 x 0.4 mg) PO DAILY #180 12/19/24 12/21/24 Rx caps Past Med/Surg History Problem List (Updated 01/05/25 @ 00:06 by Ravin Alarcon MD) Syncope (Acute) History of parotid cancer (Acute) Acute dehydration (Acute) Dizziness (Acute) Hypomagnesemia (Acute) Acute dehydration (Acute) Dizziness (Acute) Constipation Stercoral colitis (Acute) Syncope and collapse (Acute) Cancer of parotid gland (Chronic) CLL (chronic lymphocytic leukemia) Recurrent left pleural effusion Postlaminectomy syndrome Nephrolithiasis (Chronic) Mild aortic stenosis Moderate mitral regurgitation Former smoker CKD (chronic kidney disease) Insomnia Medical History Transaminitis NIKOLAS (acute kidney injury) History of nonmelanoma skin cancer GERD (gastroesophageal reflux disease) Hypertension Hyperlipidemia CAD (coronary artery disease) Atrial fibrillation Surgical History History of cataract surgery b/l S/P laminectomy C spine at [facility] S/P cholecystectomy History of heart artery stent History of coronary artery bypass graft Family History Mother Colorectal cancer Father Heart disease Uncle Heart disease Denies family history of Ovarian cancer Prostate cancer Myocardial infarction Breast cancer Social History Smoking Status: Former smoker Tobacco Type: Cigarettes Age Started Using Tobacco: 17; Age Quit Using Tobacco: 28; packs per day: 0.5; Second Hand Exposure: No; Do You Dip or Chew Tobacco: No; Hx Alcohol Use: No Hx Substance Use: No Preferred Language: Latvian Communication Ability: Effective Hearing Ability: Normal Leather Cleaner Required: No Beliefs That Will Affect Care: None Current Living Situation: Spouse current occupational status: retired current occupation: Retired How many Children do You have: 4 Feels Safe at Home: Yes Childhood Exposure to Second-Hand Smoke: Yes Diet: regular Diet Comment: has to be careful post op with chewing; caffeine: Yes during the past year weight has: decreased > 10 lbs Dental Care, Regularly: Yes Physical Activity Frequency: 5-6 Times per Week Seatbelt Use: sometimes Assistive Devices: Cane Review of Systems Review of Systems: as per hpi Physical Exam Constitutional: well developed, well nourished and + ill appearing; no acute distress and + not appropriately hydrated ENMT: Mouth: + oral mucosal abnormality (Dry mucosa) Neck: normal visual inspection Respiratory: normal respiratory effort, lungs clear to auscultation Cardiovascular: RRR, no murmur, no edema Vessels: no JVD Extremities: no edema Gastrointestinal (Abdomen): normal bowel sounds, soft, nontender, no hepatosplenomegaly Skin: no rashes, warm and dry + dry skin Neurologic: patellar DTR's 2+ bilat, sensation intact Results & Data Results & Data Vital Signs (Past 12 Hours) Vital Signs Temp Pulse Resp BP Pulse Ox O2 Del Method 01/04/25 23:30 71 20 144/93 H 98 01/04/25 23:06 67 01/04/25 23:04 99 Room Air 01/04/25 22:57 36.5 C 65 20 129/85 97 Room Air Supervising Physician Co-Signing Physician Notes Patient seen and examined with resident provider, chart reviewed, case discussed with Dr. Jose J MD and I agree with the assessment and plan as above except as otherwise noted Labs and images reviewed Chavo is an 84-year-old male with past medical history of single episode of A- fib with Maze procedure at the same time of his CABG with no recurrence, CLL, parotid cancer, radiation/chemotherapy who presents with lightheadedness/dizziness/presyncope. He appears dry and volume contracted on assessment. He has not had any chest pain or chest pressure. Does have a history of A-fib with no recurrence after his maze procedure. No other arrhythmias. Denies a history of sudden syncope/falls. Fattening is mildly elevated. Agree with above.
[2025-01-05] MEDS: LACTATED RINGER'S 1,000 ML IV SCH (00:26)
[2025-01-05] MEDS: TAMSULOSIN HCL 0.4 MG CAP PO ONE (00:44)
[2025-01-05 01:33] LABS: Appearance Urine Clear (Clear); Bacteria Urine Automated None Seen (None Seen); Cast Urine Automated 0-2 /lpf (0-2); Epithelial Cell Urine Auto 0-2 /hpf (0-2); Glucose Urine UA Negative (Negative); RBC Urine Automated 0-2 /hpf (0-2); WBC Urine Automated 0-5 /hpf (0-5)
[2025-01-05] MEDS ORDERED: POLYETHYLENE (MIRALAX) 17 GM PACK PO PRN (02:15)
[2025-01-05] MEDS ORDERED: ACETAMINOPHEN 325 MG TAB PO PRN (02:15)
[2025-01-05] MEDS ORDERED: MELATONIN 3 MG TAB PO PRN (02:15)
[2025-01-05] MEDS ORDERED: ALBUTEROL HFA 8 GM INHALER INH PRN (02:15)
[2025-01-05 04:53] LABS: Hematocrit (blood only) 34.8 % (42.0-52.0); Hemoglobin 11.7 g/dl (14.0-18.0); Immature Granulocytes # (auto) 0.01 K/uL (0.01-0.20); Immature Granulocytes % (auto) 0.2 %; Mean Corpuscular Hemoglobin 28.8 pg (25.0-34.0); Mean Corpuscular Volume 85.7 fL (80.0-100.0); Platelet Count 149 K/uL (130-400); RDW Standard Deviation 48.0 fL (36.4-46.3); Red Blood Count 4.06 M/uL (4.70-6.10); White Blood Count 4.33 K/ul (4.8-10.8)
[2025-01-05 05:35] LABS: Potassium 4.5 mmol/L (3.5-5.1)
[2025-01-05 05:41] LABS: Alanine Aminotransferase 39.0 U/L (7-52); Albumin Globulin Ratio 1.2 (0.9-2); Alkaline Phosphatase 86.0 U/L (34-104); Anion Gap 6.0 (3-11); Bilirubin,Total 0.6 mg/dl (0.2-1.0); Blood Urea Nitrogen 34.0 mg/dl (6-23); Calcium 9.4 mg/dl (8.6-10.3); Carbon Dioxide 27.0 mmol/L (21-32); Chloride 103.0 mmol/L (98-107); Creatinine Clr Calc Pharmacy 50.5 ml/min; Globulin 2.9 gm/dl (2.5-4.0); Glucose 97.0 mg/dl (70-99(Fasting)); Magnesium 1.7 mg/dl (1.7-2.4); Sodium 136.0 mmol/L (136-145); Total Protein 6.4 gm/dl (6.0-8.3)
[2025-01-05] MEDS: ASCORBIC ACID 500 MG TAB PO SCH (08:47)
[2025-01-05] MEDS: LORATADINE 10 MG TAB PO SCH (08:47)
[2025-01-05] MEDS: TAMSULOSIN HCL 0.4 MG CAP PO SCH (08:47)
[2025-01-05] MEDS: POTASSIUM CHLORIDE 10 MEQ TABCR PO SCH (08:48)
[2025-01-05] MEDS: ASPIRIN 81 MG ECTAB PO SCH (08:48)
[2025-01-05] MEDS: HEPARIN SOD 5,000 UNIT/0.5 ML VIAL SQ SCH (08:48)
[2025-01-05] MEDS ORDERED: METOPROLOL SUCC 50MG EXT REL TAB PO SCH (09:00)
[2025-01-05] MEDS: METOPROLOL SUCC 25MG EXT REL TAB PO SCH (09:23)
[2025-01-05] MEDS: ONDANSETRON INJ 2 MG/ML 2 ML VIAL IV PRN (10:38)
[2025-01-05] MEDS: SODIUM CHLORIDE 0.9% 1,000 ML IV SCH (10:39)
--- NOTE | 2025-01-05 14:56 | Hospitalist Progress Note ---
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 Had 2 ER visits on 01/04 due to severe lightheadedness/dizziness. First ER visit - received 2 liters of isotonic fluids then d/c home. Upon return home had brief syncopal event and was brought back to ER then admitted. #severe dizziness/orthostatic hypotension - -this am his orthostatics remain positive with 40 point drop in BP with standing -he remains orthostatic despite nearly 4 liters of IV fluid since yesterday -metoprolol succinate has been placed on hold -lasix is on hold -he did receive 0.8mg of flomax this am, and had 0.4mg of flomax last pm as well (?) -will continue IV fluids overnight -repeat BMP and orthostatics in am tomorrow -check cortisol in AM -flomax to be held moving forward -patient had received an immune based treatment for his CLL last year but this medication does not cause adrenal insufficiency -of note - echo done in 10/2024 showed preserved LV/RV function and only mild /mild MR -no symptoms/signs to suggest thromboembolic event leading to his symptoms #NIKOLAS - -improved -admission Cr 1.4 -Cr today 1.1 which is close to baseline -BMP am #metastatic squamous cell carcinoma of parotid gland - primary site from the skin?? -currently on cisplatin therapy per records along with XRT -s/p XRT today, and will have XRT again tomorrow -last chemo - 01/01/25 #urinary retention with need for freire catheter - -has had a freire catheter since early November 2024 when he had urinary retention & NIKOLAS -voiding trials since then unsuccessful -previous CT a/p without hydronephrosis -was to have cystoscopy with Dr Shah tomorrow -I had [place] correspondence with Dr Shah - he recommends rescheduling the cystoscopy in 1-2 weeks -made patient aware of this -continue freire -most recent u/a without signs of UTI #hypomagnesemia - -replaced, improved - mag 1.7 today #CLL - -dx via pleural effusion in 2023 -had recurrent left-sided effusion due to such -2023 started on Calquence for such (acalabrutinib) but was ultimately stopped in 2024 #h/o CAD s/p CABG in 2023 - -no ischemic symptoms at this time -hold meto succ due to severe orthostatic hypotension -cont asa -on Repatha for hyperlipidemia #h/o atrial fibrillation - -s/p MAZE procedure in the setting of his CABG -no recurrent a.fib since, and not on systemic anticoagulation #polyuria - -pt's reports copious amounts of urine production at home -certainly some of this could be due to lasix use -alternatively perhaps he has a urinary concentrating issue due to cisplatin? -specific gravity on u/a yesterday is low -Na level, however, is normal -check urine osm, check urine Na in am -glucose level today is <100 #DVT Proph - -heparin 5000 BID will have PT/OT evaluate him updated at bedside today Admission and Anticipated Discharge Date Admission Date: January 04, 2025 Subjective saw patient following his XRT to the right face was resting in bed comfortably continues to have severe dizziness/lightheadedness with any standing reports that about 3 weeks ago his flomax was increased from 0.4mg/day to 0.8mg/day since that time his believes that his symptoms have been worse reports very poor oral intake the last few weeks as well no vomiting/diarrhea denies any pain in any location finally, he is supposed to have a cystoscopy with Dr Shah tomorrow he asks that we contact Dr Shah Review of Systems Review of Systems: gen - no fevers cv - no chest pain pulm - denies dyspnea on exertion or dyspnea at rest GI - no nausea - freire in place for 7 weeks Physical Exam Physical Exam: gen - NAD, pleasant face - irritation of right face with lubricating ointment in place mouth - MMM, no lesions heart - RRR, s1 s2, 2/6 holosystolic murmur LLSB with some radiation to left axillae lungs - CTA b/l abd - soft NT ND BS+ ext - no edema, pulses b/l feet 2+ psych - a/o x 3 Results & Data Results & Data Vital Signs (Past 12 Hours) Vital Signs Pulse Pulse Resp BP BP Pulse Ox O2 Del Method 01/05/25 13:20 Room Air 01/05/25 12:43 73 14 159/78 H 100 Room Air 01/05/25 10:40 68 18 146/79 H 97 Room Air 01/05/25 07:20 67 14 137/87 97 Room Air 01/05/25 06:53 68 01/05/25 05:52 65 18 137/90 98 Room Air 01/05/25 04:17 73 16 152/70 H 96 01/05/25 03:11 64 01/05/25 03:00 68 16 132/53 L 97 Laboratory Results Laboratory Results - last 24 hr 01/04/25 01/05/25 01/05/25 23:00 01:15 04:40 WBC 4.80 4.33 L RBC 4.28 L 4.06 L Hgb 12.5 L 11.7 L Hct 37.1 L 34.8 L MCV 86.7 85.7 MCH 29.2 28.8 MCHC 33.7 33.6 RDW Std Deviation 48.2 H 48.0 H RDW Coeff of Arian 15.3 H 15.3 H Plt Count 186 149 MPV 9.9 10.3 Immature Gran % (Auto) 0.2 0.2 Neut % (Auto) 76.1 71.0 Lymph % (Auto) 12.9 14.5 [place] % (Auto) 7.9 11.3 Eos % (Auto) 2.7 2.8 Baso % (Auto) 0.2 0.2 Neut # (Auto) 3.65 3.07 Lymph # (Auto) 0.62 L 0.63 L [place] # (Auto) 0.38 0.49 Eos # (Auto) 0.13 0.12 Baso # (Auto) 0.01 0.01 Immature Gran # (Auto) 0.01 0.01 Sodium 137 136 Potassium 4.4 4.5 Chloride 103 103 Carbon Dioxide 27 27 Anion Gap 7 6 BUN 36 H 34 H Creatinine 1.42 H 1.18 Est Cr Clr Drug Dosing 42.0 50.5 eGFR 49.03 61.23 BUN/Creatinine Ratio 25.4 H 28.8 H Glucose 141 H 97 Calcium 9.7 9.4 Phosphorus 3.7 Magnesium 1.7 Total Bilirubin 0.6 AST 40 H ALT 39 Alkaline Phosphatase 86 Total Protein 6.4 Albumin 3.5 Globulin 2.9 Albumin/Globulin Ratio 1.2 Urine Color Yellow Urine Appearance Clear Urine pH 6.5 Ur Specific [place] 1.008 Urine Protein Negative Urine Glucose (UA) Negative Urine Ketones Negative Urine Blood Negative Urine Nitrite Negative Urine Bilirubin Negative Urine Urobilinogen Negative Ur Leukocyte Esterase Trace H Urine WBC (Auto) 0-5 Urine RBC (Auto) 0-2 U Hyaline Cast (Auto) 0-2 U Epithel Cells (Auto) 0-2 Urine Bacteria (Auto) None Seen Urine Comment PG Care Time/CCT Total # of Minutes Spent Total Time Spent with Patient: Total time spent is greater than 50% in coordination of care (as documented) at patient's floor/unit and/or counseling patient: Coding Level of Care Code 05546 SUB INP/OBS CARE 350MIN Diagnoses Syncope R55 Syncope type: unspecified Orthostatic hypotension I95.1 Cancer of parotid gland C07 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
--- NOTE | 2025-01-05 18:25 | Electrocardiogram Report ---
Test Reason : Blood Pressure : */* mmHG Vent. Rate : 67 BPM Atrial Rate : 67 BPM P-R Int : 154 ms QRS Dur : 92 ms QT Int : 392 ms P-R-T Axes : 59 82 21 degrees QTcB Int : 414 ms Normal sinus rhythm Normal ECG When compared with ECG of 04-Jan-2025 17:27, (unconfirmed) Premature atrial complexes are no longer Present Confirmed by Devin Adams ([id number]) on 01/05/2025 6:25:06 PM Referred By: REFERRED SELF Confirmed By: Devin Adams
[2025-01-05] MEDS: SODIUM CHLORIDE 0.65% NA SOLN 45 ML (OCEAN) PRN (21:01)
[2025-01-05] MEDS ORDERED: Nursing to Pharmacy Communication SCH (22:30)
[2025-01-06] MEDS ORDERED: Nursing to Pharmacy Communication SCH (05:30)
[2025-01-06 07:01] LABS: Hematocrit (blood only) 35.1 % (42.0-52.0); Hemoglobin 11.7 g/dl (14.0-18.0); Immature Granulocytes # (auto) 0.01 K/uL (0.01-0.20); Immature Granulocytes % (auto) 0.3 %; Mean Corpuscular Hemoglobin 28.3 pg (25.0-34.0); Mean Corpuscular Volume 84.8 fL (80.0-100.0); Platelet Count 165 K/uL (130-400); RDW Standard Deviation 47.0 fL (36.4-46.3); Red Blood Count 4.14 M/uL (4.70-6.10); White Blood Count 3.05 K/ul (4.8-10.8)
[2025-01-06 07:20] LABS: Anion Gap 5.0 (3-11); Blood Urea Nitrogen 25.0 mg/dl (6-23); Calcium 9.2 mg/dl (8.6-10.3); Carbon Dioxide 27.0 mmol/L (21-32); Chloride 107.0 mmol/L (98-107); Creatinine Clr Calc Pharmacy 46.9 ml/min; Glucose 95.0 mg/dl (70-99(Fasting)); Potassium 3.9 mmol/L (3.5-5.1); Sodium 139.0 mmol/L (136-145)
[2025-01-06] MEDS: TAMSULOSIN HCL 0.4 MG CAP PO SCH (20:28)
[2025-01-06] MEDS: LORATADINE 10 MG TAB PO SCH (20:28)
--- NOTE | 2025-01-06 21:18 | Hospitalist Progress Note ---
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 Had 2 ER visits on 01/04 due to severe lightheadedness/dizziness. First ER visit - received 2 liters of isotonic fluids then d/c home. Upon return home had brief syncopal event and was brought back to ER then admitted. #severe dizziness/orthostatic hypotension - -combination of medication (flomax - which was increased from 0.4mg to 0.8mg about 3 weeks ago; daily lasix use; meto succ) as well as dehydration -s/p copious IV fluids since admission -cortisol level wnl -echo done in 10/2024 showed preserved LV/RV function and only mild /mild MR -no symptoms/signs to suggest thromboembolic event leading to his symptoms -with holding flomax/lasix/meto succ and giving hydration his dizziness has improved significantly -although still orthostatic by way of BP readings this afternoon, he was NOT dizzy upon standing and was able to complete ADLs today comfortably -not ideal, but patient needs his alpha nicki back -he has had a freire for about 6 weeks and, to facilitate removal by urology in the future, having flomax back on board is necessary -thus, will cautiously resume flomax 0.4mg at bedtime tonight -observe overnight, and recheck orthos again tomorrow -I recommended that upon d/c home he take lasix NEEDED ONLY -depending on his BPs tomorrow may need to hold meto succ at discharge #NIKOLAS - -improved/resolved -admission Cr 1.4 -Cr 1.2 today -BMP am #metastatic squamous cell carcinoma of parotid gland - primary site from the skin?? -currently on cisplatin therapy per records along with XRT; just finished his last cisplatin treatment -s/p XRT yesterday & today; Dr Mackey coordinates his XRT -last chemo - 01/01/25 #urinary retention with need for freire catheter - -has had a freire catheter since early November 2024 when he had urinary retention & NIKOLAS -voiding trials since then unsuccessful -previous CT a/p without hydronephrosis -was to have cystoscopy with Dr Shah today; rescheduled for 01/20/25 -continue freire -most recent u/a without signs of UTI -resuming flomax 0.4mg tonight cautiously #hypomagnesemia - -replaced, resolved #CLL - -dx via pleural effusion in 2023 -had recurrent left-sided effusion due to such -2023 started on Calquence for such (acalabrutinib) but was ultimately stopped in 2024 #h/o CAD s/p CABG in 2023 - -no ischemic symptoms at this time -holding meto succ due to recent severe orthostatic hypotension --- see discussion above -cont asa -on Repatha for hyperlipidemia #h/o atrial fibrillation - -s/p MAZE procedure in the setting of his CABG -no recurrent a.fib since, and not on systemic anticoagulation #polyuria - -pt's reports copious amounts of urine production at home -certainly some of this could be due to lasix use -alternatively perhaps he has a urinary concentrating issue due to cisplatin? -specific gravity on u/a was low -serum Na level, however, is normal -checked urine osm - not low -thus no evidence of diabetes insipidus -monitor #DVT Proph - -heparin 5000 BID hopefully can d/c home on 01/07 Admission and Anticipated Discharge Date Admission Date: January 04, 2025 Subjective had another XRT treatment today w/o incident in the middle of the night last pm he had dizziness once again however, his symptoms today have been significantly better orthostatic BPs were checked in the mid-afternoon and, although he had a drop from supine to standing position (standing systolic BP was 120), he had NO dizziness in fact he was able to perform most ADLs today without any limitation no new complaints today tele overnight wnl Review of Systems Review of Systems: CV - no chest pain pulm - no dyspnea GI - no abd pain or N/V ; +stool on 01/05 Physical Exam Physical Exam: gen - NAD, pleasant, looks very good today face - irritation of right face with lubricating ointment in place mouth - MMM, no lesions heart - RRR, s1 s2, 2/6 holosystolic murmur LLSB lungs - CTA b/l (scant dry rales bases only) abd - soft NT ND BS+ ext - no edema, pulses b/l feet 2+ psych - a/o x 3 Results & Data Results & Data Vital Signs (Past 12 Hours) Vital Signs Temp Pulse Pulse Resp BP Pulse Ox O2 Del Method 01/06/25 19:26 37.0 C 63 18 144/72 H 95 Room Air 01/06/25 15:09 36.7 C 81 18 156/81 H 99 Room Air 01/06/25 14:30 93 H 01/06/25 11:39 36.6 C 74 18 146/84 H 98 Room Air Laboratory Results Laboratory Results - last 24 hr 01/06/25 05:47 WBC 3.05 L RBC 4.14 L Hgb 11.7 L Hct 35.1 L MCV 84.8 MCH 28.3 MCHC 33.3 RDW Std Deviation 47.0 H RDW Coeff of Arian 15.2 H Plt Count 165 MPV 10.9 Immature Gran % (Auto) 0.3 Neut % (Auto) 63.2 Lymph % (Auto) 21.0 [place] % (Auto) 10.5 Eos % (Auto) 4.3 Baso % (Auto) 0.7 Neut # (Auto) 1.93 Lymph # (Auto) 0.64 L [place] # (Auto) 0.32 Eos # (Auto) 0.13 Baso # (Auto) 0.02 Immature Gran # (Auto) 0.01 Sodium 139 Potassium 3.9 Chloride 107 Carbon Dioxide 27 Anion Gap 5 BUN 25 H Creatinine 1.27 Est Cr Clr Drug Dosing 46.9 eGFR 56.06 BUN/Creatinine Ratio 19.7 Glucose 95 Calcium 9.2 Cortisol AM Sample 13.10 PG Care Time/CCT Total # of Minutes Spent Total Time Spent with Patient: Total time spent is greater than 50% in coordination of care (as documented) at patient's floor/unit and/or counseling patient: Coding Level of Care Code 92323 SUB INP/OBS CARE 2/35MIN Diagnoses Syncope R55 Syncope type: unspecified Orthostatic hypotension I95.1 Cancer of parotid gland C07 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
[2025-01-07 07:57] LABS: Anion Gap 5.0 (3-11); Blood Urea Nitrogen 20.0 mg/dl (6-23); Calcium 9.2 mg/dl (8.6-10.3); Carbon Dioxide 29.0 mmol/L (21-32); Chloride 105.0 mmol/L (98-107); Creatinine Clr Calc Pharmacy 48.5 ml/min; Glucose 99.0 mg/dl (70-99(Fasting)); Potassium 3.8 mmol/L (3.5-5.1); Sodium 139.0 mmol/L (136-145)
--- NOTE | 2025-01-07 08:53 | Discharge Summary ---
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 Had 2 ER visits on 01/04 due to severe lightheadedness/dizziness. First ER visit - received 2 liters of isotonic fluids then d/c home. Upon return home had brief syncopal event and was brought back to ER then admitt ed. severe symptomatic orthostatic hypotension -cortisol level wnl -echo done in 10/2024 showed preserved LV/RV function and only mild /mild MR -did not resolve after IV fluids alone -held metoprolol, flomax, furosemide and significantly improved -tried resuming flomax 0.4 mg last night and BP dropped to 98/x on standing with feeling a little unsteady but not overtly lightheaded. Continue holding flomax. -changed furosemide to PRN -follow up with Dr. Johnson and with Dr. Shah #NIKOLAS on CKD-3 - prerenal, resolved. Cr at baseline of 1.2 #metastatic squamous cell carcinoma of parotid gland - primary site from the skin? -currently on cisplatin therapy per records along with XRT; just finished his last cisplatin treatment 01/01/25 -XRT continued this admission, ends early next week #urinary retention with need for freire catheter - -has had a freire catheter since early November 2024 when he had urinary retention & NIKOLAS -voiding trials since then unsuccessful -previous CT a/p without hydronephrosis -flomax had to be discontinued -was to have cystoscopy with Dr Shah today; rescheduled for 01/20/25 #hypomagnesemia - -replaced, resolved #CLL - -dx via pleural effusion in 2023 -had recurrent left-sided effusion due to such -2023 started on Calquence for such (acalabrutinib) but was ultimately stopped in 2024 #h/o CAD s/p CABG in 2023 - -no ischemic symptoms at this time -metoprolol stopped because of severe orthostatic hypotension - can reevaluate once further out from chemo and XRT -cont asa -on Repatha for hyperlipidemia #h/o atrial fibrillation - -s/p MAZE procedure in the setting of his CABG -no recurrent a.fib since, and not on systemic anticoagulation #reported polyuria - -pt's reports copious amounts of urine production at home -certainly some of this could be due to lasix use -considered urinary concentrating issue due to cisplatin -specific gravity on u/a was low -serum Na level, however, is normal -checked urine osm - not low -normal UOP in hospital ranging from 4052-4593 mL/24h in hospital -thus no evidence of diabetes insipidus Notes For Next Care Provider Medication Changes From Visit stopped metoprolol and flomax and changed lasix to PRN Admission HPI Per Admitting Provider 84 y/o male with advanced squamous cell carcinoma of parotid on chemotherapy and radiation, hx of CAD s/p CABG january 2024, urinary retention on Freire, hx of Afib post surgical LITO ligation/maze at time of CAB, hypertension and hyperlipidemia, hx of pleural effusion here due to lightheadedness/ dizziness. Last chemotherapy is on 01/01. stated felt nausea and lightheadedness since last night. Had a visit Ed early this afternoon due to similar complaint, resolved after 2 boluses of 1L NSS. Patient came back after 2 hours due to lightheadedness and dizziness on the stairs. Denied any fall, denied LOC, denied any chest pain or chest pressure. No palpitations. Patient states having poor po due to nausea. Patient with history of Afib s/p Maze procedure with no history of recurrence, he is off anticoagulation. Patient dry on exam. Patient will be admitted for IV fluids and monitoring. Discharge Exam Last 24h vitals reviewed GEN: no acute distress, sitting on EOB HEENT: pupils equal, sclerae anicteric, moist MM RESP: normal WOB, CTAB CV: reg no mrg ABD: soft/nt/nd +BT : freire with light yellow urine SKIN: warm and dry, no generalized rashes NEURO: AOx person, place, and situation. Face symmetric, speech normal, moves 4 ext spontaneously and equally Discharge Plan Discharge Items Patient Disposition: Home - Self-Care Reason For Visit: NIKOLAS,DEHYDRATION Discharge Diagnosis: orthostatic hypotension Condition on Discharge: Good Activity: Resume your previous activity Non-emergency contact: Primary Care Provider and Urologist Call non-emergency contact if: you have any medication questions and your symptoms worsen Follow-up/Referrals: Kirk Shah DO [Physician] - 01/20/25 2:30 pm (Cysto) Catarina Johnson DO [Primary Care Provider] - 01/27/25 1:30 pm Diet: Regular Addtl Attending Provider Instructions: You have been having low blood pressure while standing - this can cause lightheadedness and even passing out, as well as falls -stop taking daily furosemide (lasix) and just use it as needed for leg swelling -HOLD metoprolol for now -HOLD tamsulosin (flomax) for now. Your BP still dropped a lot when we gave you the lower dose of flomax (0.4 mg) last night Be careful and go from lying -->sitting-->standing slowly. Use a walker or a cane when you are up and around in case you get lightheaded. If you get lightheaded, sit down right away It was a pleasure taking care of you in the hospital, Anna Blas MD Pending Studies at Discharge: No Stand-Alone Forms: My [employer]X BATTERY, Smoking Cessation Medications and DC Order Prescriptions: Continued ondansetron HCl 8 mg tablet 8 mg PO Q8H PRN (Reason: Nausea And Vomiting) Patient Comments: 01/05- no fill history unable to verify prochlorperazine maleate [Compazine] 10 mg tablet 10 mg PO Q6H PRN (Reason: Nausea And Vomiting) pantoprazole 20 mg tablet,delayed release (DR/EC) 20 mg PO PM Qty: 90 3RF gwmk-wnyrp-sem-D3-hyal-sae bor 750 mg-100 mg- 25 mcg tablet 1 tab PO DAILY Patient Comments: 01/05- otc unable to verify magnesium glycinate 118 mg magnesium capsule 0 mg PO DAILY Patient Comments: 01/05- otc unable to verify Centrum Silver 0.4 mg-300 mcg- 250 mcg tablet 0 tab PO DAILY Patient Comments: 01/05- otc unable to verify zinc acetate 25 mg (zinc) capsule 0 mg PO DAILY Patient Comments: 01/05- no fill history unable to verify aspirin [Adult Aspirin Regimen] 81 mg tablet,delayed release (DR/EC) 0 mg PO DAILY Patient Comments: 01/05- otc unable to verify coenzyme Q10 [Co Q-10] 400 mg capsule 0 mg PO DAILY Patient Comments: 01/05- otc unable to verify loratadine [Claritin] 10 mg tablet 10 mg PO DAILY Patient Comments: 01/05- otc unable to verify ascorbic acid (vitamin C) 1,000 mg capsule 0 g PO BID Patient Comments: 01/05- otc unable to verify albuterol sulfate 90 mcg/actuation HFA aerosol inhaler 2 inh inhalation QID PRN (Reason: shortness of breath or wheezing) Qty: 8.5 2RF alprazolam 0.25 mg tablet 0.25 mg PO HS PRN (Reason: sleep) Repatha SureClick 140 mg/mL pen injector 140 mg subcut Q14D lactulose 10 gram/15 mL solution 30 ml PO BID PRN (Reason: Constipation) Changed potassium chloride 10 mEq capsule, extended release 10 meq PO DAILY PRN (Reason: take with furosemide) Qty: 90 3RF furosemide 20 mg tablet 20 mg PO DAILY PRN (Reason: leg edema) Qty: 30 2RF Held metoprolol succinate 50 mg tablet extended release 24 hr 50 mg PO DAILY Qty: 90 3RF Hold Instructions: Resume on 02/04/25. hold until/unless restarted by your doctor tamsulosin 0.4 mg capsule 0.8 mg PO DAILY Qty: 180 3RF Hold Instructions: Resume on 02/04/25. hold until/unless restarted by your doctor Discharge Orders: Discharge Order (Routine); Ordered 01/07/25 Ordered By: Anna Garza/Other Patient Handouts: Dizziness Fainting Causes, Orthostatic Hypotension Admission Data Admit Date/Time: 01/04/25 23:53 Attending Provider: Anna Blas Admit Provider: Silvia Becerra Primary Care Provider: Catarina Johnson Other Providers: Giovany Gaviria; IRB Approved Study,[place] Other Interventions: Discharge Summary Assessment (RN) Last Done: 01/07/25 12:52 Hospital Stay Data Consultations 01/04/25 23:03 ED Decision to Admit Stat Pending Results Patient Have Any Pending Studies at Discharge: No Discharge Instructions Given to Patient (Per Discharging Provider) You have been having low blood pressure while standing - this can cause lightheadedness and even passing out, as well as falls -stop taking daily furosemide (lasix) and just use it as needed for leg swelling -HOLD metoprolol for now -HOLD tamsulosin (flomax) for now. Your BP still dropped a lot when we gave you the lower dose of flomax (0.4 mg) last night Be careful and go from lying -->sitting-->standing slowly. Use a walker or a cane when you are up and around in case you get lightheaded. If you get lightheaded, sit down right away It was a pleasure taking care of you in the hospital, Anna Blas MD Total Time Total Time Spent Total Time Spent (In Minutes): I personally spent: 35 minutes today on clinical care activities including: x reviewing chart notes and vital signs [x] reviewing labs [x] discussion with exchange underwriting consultant(s) - updating urologist x examining and counseling the patient x discussion with bedside RN [x] writing prescriptions, discharge instructions x documentation Coding Level of Care Code 99209 INP/OBS DISCH >30 MIN Diagnoses Syncope R55 Syncope type: unspecified Orthostatic hypotension I95.1 Cancer of parotid gland C07 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
[2025-01-07 11:27] VITALS: RESP 20; TEMP 98.4; O2SAT 98
[2025-01-07 12:53] VITALS: BP 144/72; PULSE 63
--- NOTE | 2025-01-07 18:00 | Electrocardiogram Report ---
Test Reason : Blood Pressure : */* mmHG Vent. Rate : 65 BPM Atrial Rate : 65 BPM P-R Int : 156 ms QRS Dur : 86 ms QT Int : 406 ms P-R-T Axes : 74 89 90 degrees QTcB Int : 422 ms Normal sinus rhythm Nonspecific ST abnormality Abnormal ECG When compared with ECG of 04-Jan-2025 17:27, Premature atrial complexes are no longer Present Confirmed by Devin Adams ([id number]) on 01/07/2025 5:59:30 PM Referred By: REFERRED SELF Confirmed By: Devin Adams
== END 2025-01-07 13:45 | disposition home or self-care (01) | DRG 641 ==
LOC: ED 22:50 → SUATTDRO 23:53 → EDINP 23:53 → 2N 01-05 13:20

== ENCOUNTER 2025-02-12 07:33 | Observation (INO) ==
--- NOTE | 2025-02-10 09:02 | Anesthesiology Consultation ---
Date of Service February 10, 2025 Assessment & Plan (1) Encounter for pre-operative examination: - Infectious disease screening: Per assessment on 02/09/25- No known recent infectious disease contacts or current infectious disease symptoms. - Cardiology visit (08/19/24): "Patient remains stable from a cardiac standpoint. Following with hematology for his CLL, requiring regular thoracentesis. Despite this he remains fairly active, no anginal type symptoms. On exam today appears well perfused, no signs of heart failure. No changes to current cardiac regimen." - Cardiology addendum (10/17/24): "Mr. De La O is scheduled to undergo right parotidectomy and modified radical neck dissection at [facility]. He is post successful complete revascularization 1 year ago. He has had no recurrent anginal symptoms. From a cardiac standpoint he is low to intermediate risk for planned surgery and is okay to proceed without additional cardiac testing. Continue beta-nicki throughout perioperative course. Aspirin can be held as necessary." - PCP visit (01/30/25): "Patient presents for short-term follow-up for hypotension.. Admitted to [facility] 01/04-01/07 dx orthostatic hypotension. ER presentation.. dizziness/lightheadedness, possible syncope.. Today BP 130/80.. Blood pressures 120s-140s/80s at home, HR 80s.. He notes that he did do a trial of Flomax however that caused severe dizziness so he stopped. Since stopping t he Flomax he had no episodes of dizziness or hypotension.. Does have some concern about his elevated heart rate as this typically is high for him. Would be interested in retrialing, starting at a low dose if heart rate stays at this level or increases" - At anesthesiologist discretion DOS if updated preop chest imaging needed from their perspective. Patient acceptable risk for given surgery pending evaluation DOS. Chart Review Chart Review: Acceptable Risk for Surgery and Patient NOT seen in Pre Admission Testing History Surgery Operation Date: 02/12/25 12:30 Proposed Procedures p TURP (Transurethral Resection Prostate) - Kirk Shah DO Height/Weight Height: 6 ft Weight: 84.822 kg Allergies Allergy/AdvReac Type Severity Reaction Status Date / Time latex Allergy Mild Rash (with Verified 02/10/25 08:45 latex bandaids) oxycodone [From Percocet] AdvReac Intermediate Hallucinati Verified 02/10/25 08:45 ons Medications Home Medications Medication Instructions Recorded Confirmed Last Taken loratadine 10 mg tablet (Claritin) 10 mg PO HS 01/06/24 02/09/25 Unknown metoprolol succinate 50 mg 50 mg PO DAILY #90 tabs 03/18/24 01/30/25 Unknown tablet,extended release 24 hr pantoprazole 20 mg tablet,delayed 20 mg PO PM #90 tabs 03/18/24 02/09/25 Unknown release glucosamine 750 mg-chondroit 100 1 tab PO QAM 07/07/24 02/09/25 Unknown mg-msm-D3 25 nku-jbax-vpg bor tablet zinc acetate 25 mg (zinc) capsule 25 mg PO HS 07/07/24 02/09/25 Unknown albuterol sulfate 90 mcg/actuation 2 inh inhalation QID PRN shortness 09/01/24 02/09/25 Unknown aerosol inhaler of breath or wheezing #8.5 grams ondansetron HCl 8 mg tablet 8 mg PO Q8H PRN Nausea And Vomiting 12/01/24 02/09/25 Unknown furosemide 20 mg tablet 20 mg PO DAILY PRN leg edema #30 01/07/25 02/09/25 Unknown tabs potassium chloride 10 mEq 10 meq PO DAILY PRN take with 01/07/25 02/09/25 Unknown capsule,extended release furosemide #90 caps alprazolam 0.25 mg tablet 0.25 mg PO HS PRN sleep #90 tabs 01/08/25 02/09/25 Unknown evolocumab 140 mg/mL subcutaneous 140 mg subcut Q14D #2 mL 01/08/25 02/09/25 Unknown pen injector (Repatha SureAbnerick) lactulose 10 gram/15 mL oral 30 ml PO BID PRN Constipation 01/09/25 02/09/25 Unknown solution ascorbic acid (vitamin C) 1,000 mg 1 g PO BID 01/12/25 02/09/25 Unknown capsule aspirin 81 mg tablet,delayed 81 mg PO QAM 01/12/25 02/09/25 Unknown release (Adult Aspirin Regimen) coenzyme Q10 400 mg capsule (Co 400 mg PO HS 01/12/25 02/09/25 Unknown Q-10) magnesium glycinate 400 mg PO QAM 01/12/25 02/09/25 Unknown mngvjfaz-nhq-qjvqx acid 0.4 1 tab PO QAM 01/12/25 02/09/25 Unknown mg-lycopene 300 mcg-lutein 250 mcg tablet (Centrum Silver) tamsulosin 0.4 mg capsule 0.4 mg PO DAILY #30 caps 01/20/25 01/30/25 Unknown peg 3350-electrolytes 236 240 ml PO Q10M #4,000 mL 02/05/25 Unknown gram-22.74 gram-6.74 gram-5.86 gram solution (Golytely) Past Medical History Medical History Atrial fibrillation Follows with Dr. 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 History of parotid cancer 08/2021- s/p surgery/chemo/radiation Hyperlipidemia Hypertension Mild aortic stenosis Echo 10/2024 Recurrent left pleural effusion Noted per remote records No noted current/recent issues Past Family History Family History Mother Colorectal cancer Father Heart disease Uncle Heart disease Other No family history of adverse response to anesthesia Denies family history of Ovarian cancer Prostate cancer Myocardial infarction Breast cancer Past Surgical History Surgical History History of biopsy Parotid gland (malignant) History of cardiac cath 2002- stent x1 10/2023- no stents > CABG x3 History of cataract surgery b/l History of colonoscopy History of coronary artery bypass graft (10/2023) CABG x3 History of eye surgery left retina procedure History of heart artery stent 2001- stent x1 History of Mohs micrographic surgery for skin cancer History of parotidectomy (10/21/24) R/t cancer ([facility]) History of tonsillectomy S/P cholecystectomy S/P laminectomy (2000) C4-C6 Social History Smoking Status: Former smoker Do You Dip or Chew Tobacco: No Smoking End Date: 1966 Hx Alcohol Use: Yes Alcohol type: wine alcohol intake frequency: a few times a month Hx Substance Use: No substance use type: does not use Lab Results Anesthesia Preop Results Results Anesthesia Widget: WBC 3.59 K/ul (4.8-10.8) L 01/29/25 Hgb 11.9 g/dl (14.0-18.0) L 01/29/25 Hct 34.8 % (42.0-52.0) L 01/29/25 Plt 191 K/uL (130-400) 01/29/25 Na 139 mmol/L (136-145) 01/29/25 K 4.7 mmol/L (3.5-5.1) 01/29/25 Cl 105 mmol/L (98-107) 01/29/25 CO2 29 mmol/L (21-32) 01/29/25 BUN 24 mg/dl (6-23) H 01/29/25 Creat 1.13 mg/dl (0.6-1.4) 01/29/25 Glucose Level 102 mg/dl (70-99(Fasting)) H 01/29/25 Urine Color Yellow 01/05/25 Urine Appearance Clear (Clear) 01/05/25 Urine pH 6.5 (4.5-7.5) 01/05/25 Urine Specific [place] 1.008 (1.000-1.030) 01/05/25 Urine Protein Negative (Negative) 01/05/25 Urine Glucose (UA) Negative (Negative) 01/05/25 Urine Ketones Negative (Negative) 01/05/25 Urine Blood Negative (Negative) 01/05/25 Urine Nitrite Negative (Negative) 01/05/25 Urine Bilirubin Negative (Negative) 01/05/25 Urine Urobilinogen Negative (Negative) 01/05/25 Urine Leukocyte Esterase Trace (Negative) H 01/05/25 Urine WBC (Auto) 0-5 /hpf (0-5) 01/05/25 Urine RBC (Auto) 0-2 /hpf (0-2) 01/05/25 Urine Hyaline Casts (Auto) 0-2 /lpf (0-2) 01/05/25 Urine Epithelial Cells (Auto) 0-2 /hpf (0-2) 01/05/25 Urine Bacteria (Auto) None Seen (None Seen) 01/05/25 Testing Laboratory Results Urine culture (02/09/25): Pending Electrocardiogram Date: 01/04/25 NSR at 67bpm. "Normal ECG" Chest X-Ray Date: 01/04/25 Findings: Likely CABG changes. Calcified atherosclerotic changes of the thoracic aorta. Macro LITO clip mild obscuration left hemidiaphragm. Poorly defined left costophrenic angle. This is much improved when compared to prior study. Linear band density likely representing scarring at the level of the lingula. Right lung is clear. Pulmonary vasculature is within normal limits. Impression: Improved but persistent nonspecific left base subsegmental atelectasis and or consolidation with likely small effusion. [facility]/30[facility]25: "Resp: Respiration rate is normal, no use of accessory muscles noted. Lungs clear to auscultation. No wheezes, rales, or rhonchi" Echocardiogram Date: 11/24/24 LVEF 55-60%. LV wall motion is normal. Mild valvular aortic stenosis. Grade II DD. Moderate LAD. Mild cLVH. "Echo similar to 03/25/24" per report. Other Testing Carotid doppler Date: 11/24/24 IMPRESSION: 1. Atherosclerosis without hemodynamically significant stenosis within the left or right internal carotid arteries. 2. Normal antegrade vertebral flow bilaterally. 3. High-grade stenosis of the left external carotid artery.
[2025-02-12] MEDS: LACTATED RINGER'S 1,000 ML IV SCH (08:17)
--- NOTE | 2025-02-12 08:24 | History & Physical Bridge Note ---
Date of Service February 12, 2025 History & Physical Bridge Note I have examined the patient, reviewed the History & Physical and in the interval since the performance of the History & Physical I have noted the following changes of clinical significance: no changes noted Patient considered options. Failed freire removal. Wanted to proceed as soon as possible. Risks and benefits discussed at length for procedure. These include bleeding, infection, injury to surrounding tissues or organs, and risks associated with anesthesia. Patient states understanding and agrees to proceed. Will sign consent and schedule. Plan for Transurethral resection of Prostate Plan observation overnight. Catheter for approx 10-14 days
[2025-02-12] MEDS ORDERED: PHENAZOPYRIDINE HCL 200 MG TAB PO PRN (08:32)
[2025-02-12] MEDS ORDERED: MoRPHine SULFATE 2 MG/ML CARP IV PRN (08:32)
[2025-02-12] MEDS ORDERED: POTASSIUM CHLORIDE 10 MEQ TABCR PO PRN (08:35)
[2025-02-12] MEDS ORDERED: ALBUTEROL HFA 8 GM INHALER INH PRN (08:35)
[2025-02-12] MEDS ORDERED: LACTULOSE SYRUP 10 GM/15 ML BTL 960 ML PO PRN (08:35)
[2025-02-12] MEDS ORDERED: PROPOFOL IV EMULSION 10 MG/ML 20 ML VIAL IV ONE (09:11)
[2025-02-12] MEDS ORDERED: DEXAMETHASONE SOD INJ 4 MG/ML VIAL ONE (09:11)
[2025-02-12] MEDS ORDERED: ONDANSETRON INJ 2 MG/ML 2 ML VIAL ONE (09:11)
[2025-02-12] MEDS ORDERED: ONDANSETRON INJ 2 MG/ML 2 ML VIAL IV PRN (09:23)
[2025-02-12] MEDS ORDERED: ATROPINE SULFATE 0.1 MG/ML 10ML SYR IV PRN (09:23)
[2025-02-12] MEDS ORDERED: PHENYLEPHRINE 100MCG/ML 5ML SYR ONE (10:53)
--- NOTE | 2025-02-12 11:11 | Operative Report ---
PG Post Operative Report Pre & Post Diagnosis Operation Date: 02/12/25 09:00 Pre-Op Diagnosis: Benign Prostatic Hyperplasia and Urinary Retention Post-Op Diagnosis: Benign Prostatic Hyperplasia and Urinary Retention I identified the patient and participated in the time-out.: Yes Procedure Operation Date: 02/12/25 09:00 Actual Procedures p Transurethral Resection of Prostate(Not Applicable) - Kirk Shah DO Surgeon Kirk Shah, II, DO Brim Molder None Estimated Blood Loss 5 Findings Consistent with Post-Op Diagnosis Large Prostate with obstruction. Specimens Prostate adenoma. Drains 22Fr [address] Silicone Catheter Anesthesia Type General Complications none Disposition Disposition: Recovery Room Indications Patient with obstruction due to prostate enlargement. Risks and benefits discussed at length. Description of Procedure Patient was consented and brought back to the operating room. Patient was placed under anesthesia in the supine position and moved to the dorsal lithotomy position. Patient was prepped and draped in the regular sterile fashion. A time out was completed. A 30degree Cystoscope was placed into the bladder and the entire bladder was examined. The UO's were identified as well as the bladder neck, trigone, dome, and the other important landmarks. The prostatic urethra and large lobes/adenoma was assessed and the veru and bladder neck identified and area/size was assessed. The resection scope was placed and the fine bipolar loop was selected. Starting at the 5 and 7 o'clock positions, a channel was created from bladder neck to the veru. Once the channel was fully resected attention went to the lateral lobes. Starting at 1 and 11 o'clock the lateral lobes were resected to capsule fibers. The majority of the adenoma was able to be resected and cleared. The Specimen was removed and sent for analysis. The resection bed and any bleeding areas were fulgurated/cauterized and the entire area inspected. All bleeding was controlled. The bladder was inspected a final time. The bladder was emptied and irrigated. All specimen and debris was removed. The scope was removed with the bladder partially full. A catheter was placed and balloon elevated. This was easily irrigated. The patient was cleaned, aroused from anesthesia, and transferred to the pacu in stable condition having tolerated the procedure well with no complications. I was present and participated in all aspects of the procedure. The patient will be monitored in the PACU until transferred. Will observe overnight. Plan for catheter for approx 10 - 14 days. Followup for catheter removal in office with pathology review. I attest to the content of the Intraoperative Record and any orders documented therein. Any exceptions are noted below.
[2025-02-12 12:00] LABS: Hematocrit (blood only) 31.2 % (42.0-52.0); Hemoglobin 10.5 g/dl (14.0-18.0); Mean Corpuscular Hemoglobin 29.2 pg (25.0-34.0); Mean Corpuscular Volume 86.9 fL (80.0-100.0); Platelet Count 198 K/uL (130-400); RDW Standard Deviation 51.7 fL (36.4-46.3); Red Blood Count 3.59 M/uL (4.70-6.10); White Blood Count 4.37 K/ul (4.8-10.8)
--- NOTE | 2025-02-12 12:09 | Anesthesiology Progress Note ---
Date of Service February 12, 2025 Anesthesia Post Procedure Vital Signs Vital Signs: Temp Pulse Pulse Resp BP BP Pulse Ox 02/12/25 12:05 75 14 154/81 H 95 02/12/25 11:55 76 14 156/77 H 98 02/12/25 11:45 74 15 148/76 H 97 02/12/25 11:35 74 13 150/85 H 100 02/12/25 11:25 84 10 L 151/76 H 100 02/12/25 11:19 97.2 F L 81 15 150/81 H 99 02/12/25 07:58 97.9 F 84 20 152/82 H 97 O2 Del Method 02/12/25 12:05 Room Air 02/12/25 11:55 Room Air 02/12/25 11:45 Room Air 02/12/25 11:35 Room Air 02/12/25 11:25 Room Air 02/12/25 11:19 Room Air 02/12/25 07:58 Room Air Transfer of Care Handoff Completed per policy Notes Mental Status: alert / awake / arousable and participated in evaluation Patient Amnestic to Procedure: Yes Nausea / Vomiting: adequately controlled Pain: adequately controlled Airway Patency, RR, SpO2: stable & adequate BP & HR: stable & adequate Hydration State: stable & adequate Anesthetic Complications: no major complications apparent and Pt Satisfied with anesthetic care
[2025-02-12 12:20] LABS: Alanine Aminotransferase 11.0 U/L (7-52); Albumin Globulin Ratio 1.4 (0.9-2); Alkaline Phosphatase 88.0 U/L (34-104); Anion Gap 4.0 (3-11); Bilirubin,Total 0.4 mg/dl (0.2-1.0); Blood Urea Nitrogen 24.0 mg/dl (6-23); Calcium 9.1 mg/dl (8.6-10.3); Carbon Dioxide 27.0 mmol/L (21-32); Chloride 109.0 mmol/L (98-107); Creatinine Clr Calc Pharmacy 53.0 ml/min; Globulin 2.6 gm/dl (2.5-4.0); Glucose 106.0 mg/dl (70-99(Fasting)); Potassium 5.2 mmol/L (3.5-5.1); Sodium 140.0 mmol/L (136-145); Total Protein 6.2 gm/dl (6.0-8.3)
[2025-02-12] MEDS ORDERED: ONDANSETRON 4 MG OD TAB PO PRN (12:35)
[2025-02-12] MEDS: LAVAGE SOLUTION 4000ML PO SCH (14:37)
[2025-02-12] MEDS: DOCUSATE SODIUM 100 MG CAP PO SCH (14:37)
[2025-02-12] MEDS: TAMSULOSIN HCL 0.4 MG CAP PO SCH (14:38)
[2025-02-12] MEDS: SODIUM CHLORIDE 0.9% 1,000 ML IV SCH (14:52)
[2025-02-12] MEDS: METOPROLOL SUCC 50MG EXT REL TAB PO SCH (14:55)
--- NOTE | 2025-02-12 16:16 | Hospitalist Consultation ---
Date of Consultation February 12, 2025 Assessment & Plan (1) Orthostatic hypotension: (2) S/P urological surgery: (3) Hyperkalemia: Plan #S/p transurethral resection of the prostate Perioperative antibiotics, fluids, pain management, and DVT PPx per the primary team Daily Hwang catheter care Agree with a.m. CBC, CMP; we will follow #Hyperkalemia Mild; K 5.2 postoperatively Hold potassium supplementation Trend renal function #Severe symptomatic orthostatic hypotension | HTN | BPH Patient reports that all of his antihypertensives currently on hold Hold metoprolol, Flomax Hold PRN Lasix Fall precautions #Insomnia Continue alprazolam PRN HS #GERD Continue PPI #Constipation Lactulose BID PRN #CAD s/p CABG 2023 Continue aspirin #Anemia Chronic, but lower than baseline in setting of operation; Hgb 10.5 on 02/12 No gross hematuria appreciated Hwang postop Trend CBC Addendum at 1900: Notified by nursing staff that patient had an episode of BRB in stool. Assessed patient at bedside. He reports he does have a history of anal fissures. He reports that the blood was not in his stool, but rather it leaked from the side onto the toilet seat. This is not new for him. Patient has an upcoming colonoscopy scheduled for May 2025. No prior history of Crohn's or ulcerative colitis. Will consider nifedipine ointment if patient has residual pain secondary to his anal fissures. Thank you for allowing us to persuade in the care of this patient; please reach out with any questions or concerns. Will continue to follow. Supervising Physician Co-Signing Physician Notes Attending Attestation and Consult Note: Pt seen/examined, chart reviewed, consult care plan d/w YASMANY Benoit. I agree w/ the man components of his consult documentation. 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 Presented for TURP procedure by Dr Crow Shah today. I saw him on the telemetry floor post-op and he was resting comfortably. Feels very well. PMH/PSH/allergies/meds/sochx - reviewed VSS, afebrile, o2 sats wnl gen - NAD, looks great HENT - mouth with MMM neck - no JVD heart - RRR, s1 s2 lungs - CTA b/l abd - soft NT ND BS+ ext - no edema, pulses 2+ b/l labs reviewed - K 5.2 Cr stable a/p: 1. s/p TURP for BPH 2. h/o CAD s/p CABG 3. h/o afib 4. h/o CLL 5. squamous cell ca of parotid gland 6. orthostatic hypotension -will need repeat labs tomorrow AM particularly potassium level -telemetry due to h/o a.fib -no ischemic sx's at this time despite CAD history -follow for any issues with #6 -- cont IV fluids Joseluis Saldivar MD History of Present Illness Reason for Consultation: Medical management Requesting Physician: Kirk Shah II, DO Attending Physician: Kirk Shah II, DO History of Present Illness Mr. De La O is an 84-year-old male with PMH of orthostatic hypotension, atrial fibrillation, CLL, and stercoral colitis. He presented for a transurethral resection of the prostate with Dr. Shah on 02/12. Per review of operative report, EBL was listed as 5 cc, general anesthesia was used, and there were no reported intraoperative complications. Per review of patient's vitals postoperatively, he has been mildly hypertensive at 151/88; vitals otherwise stable. Patient reports no new complaints at time of consult. He feels comfortable at this time. Denies any pain. Patient is eating and drinking well since the procedure. He was also able to ambulate to the laboratory postoperatively, and reports not having any dizziness or lightheadedness. He does feel like he might need to have a bowel movement this evening as well. Patient does have a cane at home as needed for ambulatory dysfunction, but reports he has not had any dizziness since stopping his metoprolol, tamsulosin, Lasix, and supplemental potassium. Patient has not restarted any of these medications since his episode of severe orthostatic hypotension around the beginning of December. He reports he did try taking 1 tamsulosin dose a couple weeks ago, and could "barely stand up". No sick contacts prior to coming to the hospital. ROS: Patient endorses neuropathy in lower extremity bilaterally, and mild burning at the tip of the penis (which has been intermittent/chronic over the last 11 weeks) Patient denies fever, chills, night sweats, chest pain, chest palpitations, cough, SOB, abdominal pain, N/V/D, dysuria, or changes in urinary / bowel habits. Allergies Allergy/AdvReac Type Severity Reaction Status Date / Time latex Allergy Mild Rash (with Verified 02/17/25 13:35 latex bandaids) oxycodone [From Percocet] AdvReac Intermediate Hallucinati Verified 02/17/25 13:35 ons Home Medications Medication Instructions Recorded Confirmed Type loratadine 10 mg tablet (Claritin) 10 mg PO HS 01/06/24 02/17/25 History metoprolol succinate 50 mg 50 mg PO DAILY #90 tabs 03/18/24 02/17/25 Rx tablet,extended release 24 hr pantoprazole 20 mg tablet,delayed 20 mg PO PM #90 tabs 03/18/24 02/17/25 Rx release glucosamine 750 mg-chondroit 100 1 tab PO QAM 07/07/24 02/17/25 History mg-msm-D3 25 upi-wkaa-uvy bor tablet zinc acetate 25 mg (zinc) capsule 25 mg PO HS 07/07/24 02/17/25 History albuterol sulfate 90 mcg/actuation 2 inh inhalation QID PRN shortness 09/01/24 02/17/25 Rx aerosol inhaler of breath or wheezing #8.5 grams ondansetron HCl 8 mg tablet 8 mg PO Q8H PRN Nausea And Vomiting 12/01/24 02/17/25 History furosemide 20 mg tablet 20 mg PO DAILY PRN leg edema #30 01/07/25 02/17/25 Rx tabs potassium chloride 10 mEq 10 meq PO DAILY PRN take with 01/07/25 02/12/25 Rx capsule,extended release furosemide #90 caps alprazolam 0.25 mg tablet 0.25 mg PO HS PRN sleep #90 tabs 01/08/25 02/17/25 Rx evolocumab 140 mg/mL subcutaneous 140 mg subcut Q14D #2 mL 01/08/25 02/17/25 Rx pen injector (Sen Tse) lactulose 10 gram/15 mL oral 30 ml PO BID PRN Constipation 01/09/25 02/17/25 History solution ascorbic acid (vitamin C) 1,000 mg 1 g PO BID 01/12/25 02/17/25 History capsule aspirin 81 mg tablet,delayed 81 mg PO QAM 01/12/25 02/17/25 History release (Adult Aspirin Regimen) coenzyme Q10 400 mg capsule (Co 400 mg PO HS 01/12/25 02/17/25 History Q-10) magnesium glycinate 400 mg PO QAM 01/12/25 02/17/25 History abdydrup-dse-amnjr acid 0.4 1 tab PO QAM 01/12/25 02/17/25 History mg-lycopene 300 mcg-lutein 250 mcg tablet (Centrum Silver) tamsulosin 0.4 mg capsule 0.4 mg PO DAILY #30 caps 01/20/25 02/17/25 Rx peg 3350-electrolytes 236 240 ml PO Q10M #4,000 mL 02/05/25 02/12/25 Rx gram-22.74 gram-6.74 gram-5.86 gram solution (Golytely) ciprofloxacin HCl 500 mg tablet 500 mg PO BID #14 tabs 02/10/25 02/17/25 Rx (Cipro) Patient History Medical History Atrial fibrillation Follows with Dr. 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 History of parotid cancer 08/2021- s/p surgery/chemo/radiation Hyperlipidemia Hypertension Mild aortic stenosis Echo 10/2024 Recurrent left pleural effusion Noted per remote records No noted current/recent issues Surgical History History of biopsy Parotid gland (malignant) History of cardiac cath 2001- stent x1 10/2023- no stents > CABG x3 History of cataract surgery b/l History of colonoscopy History of coronary artery bypass graft (10/2023) CABG x3 History of eye surgery left retina procedure History of heart artery stent 2002- stent x1 History of Mohs micrographic surgery for skin cancer History of parotidectomy (10/21/24) R/t cancer ([facility]) History of tonsillectomy S/P cholecystectomy S/P laminectomy (2000) C4-C6 Family History Mother Colorectal cancer Father Heart disease Uncle Heart disease Other No family history of adverse response to anesthesia Denies family history of Ovarian cancer Prostate cancer Myocardial infarction Breast cancer Social History Smoking Status: Former smoker Tobacco Type: Cigarettes Age Started Using Tobacco: 17; Age Quit Using Tobacco: 28; packs per day: 0.5; Second Hand Exposure: No; Do You Dip or Chew Tobacco: No; Hx Alcohol Use: Yes Alcohol type: wine Alcohol type Comment: cocktails Alcohol Intake Frequency: 2-3 x/Week Hx Substance Use: No Preferred Language: Indonesian Communication Ability: Effective Hearing Ability: Normal Senior Power Scheduler Required: No Beliefs That Will Affect Care: None Current Living Situation: Spouse current occupational status: retired current occupation: Retired How many Children do You have: 4 Feels Safe at Home: Yes Childhood Exposure to Second-Hand Smoke: Yes Diet: regular Diet Comment: has to be careful post op with chewing; caffeine: Yes during the past year weight has: decreased > 10 lbs Dental Care, Regularly: Yes Physical Activity Frequency: 5-6 Times per Week Seatbelt Use: sometimes Assistive Devices: None Review of Systems Review of Systems: See HPI above Physical Exam Physical Exam: General: no acute distress; pleasant affect non-toxic appearing; well-nourished; cooperative; SpO2 98% on room HEENT: normocephalic, atraumatic; no scleral icterus; PERRLA; vision intact; hard of hearing Neck: supple; no lymphadenopathy; trachea midline Skin: warm, dry without signs of tenting; no cyanosis; no rashes, bruising, lesions, or erythema noted CV: chest wall NTP; RRR; pulses intact and symmetric at radial, DP, and PT Lungs: no acute respiratory distress; symmetrical chest wall expansion; clear breath sounds across all lung webb w/o adventitious sounds; no wheezing ABD: Soft, NTP; BS present; no rebound/guarding; no distention : Hwang catheter in place draining clear yellow urine; negative suprapubic tenderness MSK: no tics or fasciculations; no edema noted in the LEs b/l, nonerythematous Neuro: A&Ox3; normal mood and affect; fluent speech; no focal deficits; patient reports sensation is intact and symmetric in lower extremities bilaterally Results & Data Results & Data Vital Signs (Past 12 Hours) Vital Signs Temp Pulse Pulse Pulse Resp BP BP 02/12/25 14:12 36.4 C L 89 17 151/80 H 02/12/25 14:09 02/12/25 14:00 76 17 162/89 H 02/12/25 13:30 77 20 153/70 H 02/12/25 13:00 79 22 162/89 H 02/12/25 12:45 79 15 154/93 H 02/12/25 12:30 77 14 146/85 H 02/12/25 12:15 36.5 C 77 19 167/73 H 02/12/25 12:05 75 14 154/81 H 02/12/25 11:55 76 14 156/77 H 02/12/25 11:45 74 15 148/76 H 02/12/25 11:35 74 13 150/85 H 02/12/25 11:25 84 10 L 151/76 H 02/12/25 11:19 36.2 C L 81 15 150/81 H 02/12/25 07:58 36.6 C 84 20 152/82 H Pulse Ox Pulse Ox O2 Del Method O2 Del Method 02/12/25 14:12 98 Room Air 02/12/25 14:09 98 Room Air 02/12/25 14:00 96 Room Air 02/12/25 13:30 95 Room Air 02/12/25 13:00 96 Room Air 02/12/25 12:45 95 Room Air 02/12/25 12:30 96 Room Air 02/12/25 12:15 100 Room Air 02/12/25 12:05 95 Room Air 02/12/25 11:55 98 Room Air 02/12/25 11:45 97 Room Air 02/12/25 11:35 100 Room Air 02/12/25 11:25 100 Room Air 02/12/25 11:19 99 Room Air 02/12/25 07:58 97 Room Air Laboratory Results Abnormal lab results 02/12/25 Range/Units 11:35 WBC 4.37 L (4.8-10.8) K/ul RBC 3.59 L (4.70-6.10) M/uL Hgb 10.5 L (14.0-18.0) g/dl Hct 31.2 L (42.0-52.0) % RDW Std Deviation 51.7 H (36.4-46.3) fL RDW Coeff of Arian 16.4 H (11.5-14.5) % Potassium 5.2 H (3.5-5.1) mmol/L Chloride 109 H (98-107) mmol/L BUN 24 H (6-23) mg/dl BUN/Creatinine Ratio 20.7 H (10-20) Glucose 106 H (70-99(Fasting)) mg/dl PG Care Time/CCT Total # of Minutes Spent Total Time Spent with Patient: Total time spent is greater than 50% in coordination of care (as documented) at patient's floor/unit and/or counseling patient: [place] [address] IN/OBS CONSULT LVL 3,45M Patient Type Established Medical Decision Making Moderate Complexity Diagnoses Orthostatic hypotension I95.1 S/P urological surgery Z98.890 Hyperkalemia E87.5
[2025-02-13 04:03] VITALS: TEMP 97.3
[2025-02-13] MEDS ORDERED: Nursing to Pharmacy Communication SCH (04:15)
[2025-02-13 07:34] VITALS: BP 132/69; PULSE 75; RESP 16; O2SAT 99
[2025-02-13 07:52] LABS: Hematocrit (blood only) 30.9 % (42.0-52.0); Hemoglobin 10.5 g/dl (14.0-18.0); Mean Corpuscular Hemoglobin 29.7 pg (25.0-34.0); Mean Corpuscular Volume 87.3 fL (80.0-100.0); Platelet Count 192 K/uL (130-400); RDW Standard Deviation 53.1 fL (36.4-46.3); Red Blood Count 3.54 M/uL (4.70-6.10); White Blood Count 8.49 K/ul (4.8-10.8)
[2025-02-13 08:09] LABS: Alanine Aminotransferase 9.0 U/L (7-52); Albumin Globulin Ratio 1.4 (0.9-2); Alkaline Phosphatase 82.0 U/L (34-104); Anion Gap 5.0 (3-11); Bilirubin,Total 0.4 mg/dl (0.2-1.0); Blood Urea Nitrogen 19.0 mg/dl (6-23); Calcium 9.0 mg/dl (8.6-10.3); Carbon Dioxide 26.0 mmol/L (21-32); Chloride 109.0 mmol/L (98-107); Creatinine Clr Calc Pharmacy 49.1 ml/min; Globulin 2.5 gm/dl (2.5-4.0); Glucose 101.0 mg/dl (70-99(Fasting)); Potassium 4.3 mmol/L (3.5-5.1); Sodium 140.0 mmol/L (136-145); Total Protein 6.0 gm/dl (6.0-8.3)
--- NOTE | 2025-02-13 08:21 | Hospitalist Progress Note ---
"Date of Service February 13, 2025 Assessment & Plan (1) Orthostatic hypotension: (2) S/P urological surgery: (3) Anemia: Plan #S/p transurethral resection of the prostate Perioperative antibiotics, fluids, pain management, and DVT PPx per the primary team Daily Hwang catheter care #Hyperkalemia (resolved) Mild; K 5.2 postoperatively K 4.3 on the morning of 02/13 Continue to hold potassium supplementation Lasix is on hold Trend renal function as an outpatient #Severe symptomatic orthostatic hypotension | HTN | BPH Patient reports that all of his antihypertensives currently on hold Hold metoprolol, Flomax, Lasix Fall precautions while in the hospital #Insomnia Continue alprazolam PRN HS #GERD Continue PPI #Constipation Lactulose BID PRN #CAD s/p CABG 2023 Continue aspirin #Anemia Chronic; stable at 10.5 No gross hematuria appreciated Hwang postop Trend CBC as an outpatient #Anal fissures Notified by nursing staff that patient may have had blood in in his stool on 02/13 After discussing this with the patient at bedside, he reports he has a history of anal fissures, and that there was not blood in the stool, but rather blood that leaked out of the toilet seat This is not new for him Patient reports he does have a scheduled colonoscopy for May 2025 Will consider adding nifedipine ointment if patient has residual pain secondary to his fissures, but no pain reported on 02/13 Thank you for allowing us to participate in the care of this patient; please reach out with any questions or concerns. Given patient is likely be discharged this afternoon, hospital medicine will sign off at this time. Admission and Anticipated Discharge Date Admission Date: February 12, 2025 Supervising Physician Co-Signing Physician Notes Attending Attestation - Chart reviewed, care plan d/w YASMANY Benoit. I agree w/ the man components of his documentation. Joseluis Saldivar MD Subjective Mr. De La O reports he had difficulty sleeping last night, and only had a few hours between 1 and 3 AM. However, he reports he feels well this morning. He denies any lightheadedness or dizziness with standing. No pain. He had additional BM this morning, but no blood reported. He does report that there was some blood in his Hwang bag this more, but otherwise he feels well, and feels ready to return home at this time ROS: Patient endorses hematuria. Patient denies fever, chills, night sweats, chest pain, chest palpitations, SOB,, pleuritic CP cough, abdominal pain, N/V/D, burning sensation in groin, blood in stool, saddle anesthesia, or numbness / tingling going down the legs. Review of Systems Review of Systems: See HPI above Physical Exam Physical Exam: General: no acute distress; pleasant affect non-toxic appearing; well-nourished; cooperative; SpO2 99% on room HEENT: normocephalic, atraumatic; no scleral icterus; PERRLA; vision intact; mary lou d of hearing Neck: supple; no lymphadenopathy; trachea midline Skin: warm, dry without signs of tenting; no cyanosis; no rashes, bruising, lesions, or erythema noted CV: chest wall NTP; RRR; pulses intact and symmetric at radial, DP, and PT Lungs: no acute respiratory distress; symmetrical chest wall expansion; clear breath sounds across all lung webb w/o adventitious sounds; no wheezing ABD: Soft, NTP; BS present; no rebound/guarding; no distention : Hwang catheter in place draining dark orange urine; negative suprapubic tenderness MSK: no tics or fasciculations; no edema noted in the LEs b/l, nonerythematous; patient demonstrates ability to wiggle toes Neuro: A&Ox3; normal mood and affect; fluent speech; no focal deficits; patient reports sensation is intact and symmetric in lower extremities bilaterally Results & Data Results & Data Vital Signs (Past 12 Hours) Vital Signs Temp Pulse Pulse Resp BP Pulse Ox O2 Del Method 02/13/25 07:33 36.3 C L 75 16 132/69 99 Room Air 02/13/25 07:05 72 02/13/25 04:02 36.3 C L 75 14 137/50 L 97 Room Air 02/12/25 23:10 37 C 92 H 14 138/67 95 Room Air 02/12/25 21:54 80 PG Care Time/CCT Total # of Minutes Spent Total Time Spent with Patient: Total time spent is greater than 50% in coordination of care (as documented) at patient's floor/unit and/or counseling patient: C[place] [address] SUB INP/OBS CARE 2/35MIN Patient Type Established Medical Decision Making Moderate Complexity Diagnoses Orthostatic hypotension I95.1 S/P urological surgery Z98.890 Anemia D64.9"
--- NOTE | 2025-02-13 08:51 | Urology Progress Note ---
Date of Service February 13, 2025 Assessment & Plan (1) BPH with urinary obstruction: (2) S/P urological surgery: Plan: - Pt POD#1 s/p TURP with Dr. Shah - Doing well, progressing as expected - Afebrile, hemodynamically stable - Lab work reviewed - creatinine 1.25, WBC 8.49, Hgb 10.5 - Tolerating PO diet - 3 way Hwang catheter intact, patent and draining clear urine with CBI on slow - CBI clamped during exam this morning, nursing aware - will reassess later this AM - Maintain Hwang catheter - Anticipate home with Hwang catheter later today presuming urine appropriate and he continues to progress as expected - Continue course of antibiotics as directed - Expected clinical course reviewed, all questions answered - Will arrange outpatient follow-up with our service for voiding trial and path review - Appreciate assistance from hospital medicine service Admission and Anticipated Discharge Date Admission Date: February 12, 2025 Subjective Patient seen and examined at bedside this morning. Urine clear with CBI on slow. CBI clamped during exam. He denies pain. No fever or chills. He noted some bright red blood per rectum yesterday. He reports history of anal fissures. Review of Systems Constitutional: as per Subjective / HPI Genitourinary: + as per Subjective / HPI Physical Exam Constitutional: well developed and well nourished; no acute distress Respiratory: normal respiratory effort; no respiratory distress and no labored breathing Gastrointestinal (Abdomen): Inspection/Auscultation: abdomen normal to inspection Musculoskeletal: Head/Neck/Chest: normocephalic Neurologic: moves all extremities and awake Psychiatric: Orientation: alert and oriented x 3 Genitourinary: Hwang draining clear yellow urine with CBI on slow. CBI clamped during exam. RN made aware. Results & Data Vital Signs (Past 12 Hours) Vital Signs Temp Pulse Pulse Resp BP Pulse Ox O2 Del Method 02/13/25 07:33 36.3 C L 75 16 132/69 99 Room Air 02/13/25 07:05 72 02/13/25 04:02 36.3 C L 75 14 137/50 L 97 Room Air 02/12/25 23:10 37 C 92 H 14 138/67 95 Room Air 02/12/25 21:54 80 PG Care Time/CCT Total # of Minutes Spent Total Time Spent with Patient: Total time spent is greater than 50% in coordination of care (as documented) at patient's floor/unit and/or counseling patient: Coding Level of Care Code None Diagnoses BPH with urinary obstruction N40.1; N13.8 S/P urological surgery Z98.890
--- NOTE | 2025-02-13 09:38 | Discharge Summary ---
Date of Service February 13, 2025 Admission HPI Per Admitting Provider Patient with history of BPH with obstruction and urinary retention here for scheduled TURP. Principal Diagnosis BPH with obstruction, urinary retention Discharge Exam Constitutional well developed and well nourished; no acute distress Respiratory normal respiratory effort; no respiratory distress and no labored breathing Gastrointestinal (Abdomen) Inspection/Auscultation: abdomen normal to inspection Musculoskeletal Head/Neck/Chest: normocephalic Neurologic moves all extremities and awake Psychiatric Orientation: alert and oriented x 3 Genitourinary Urine clear yellow with CBI clamped Discharge Data Allergies Allergy/AdvReac Type Severity Reaction Status Date / Time latex Allergy Mild Rash (with Verified 02/12/25 07:37 latex bandaids) oxycodone [From Percocet] AdvReac Intermediate Hallucinati Verified 02/12/25 07:37 ons Consultations 02/12/25 11:13 Consult Hospitalist Routine Procedures Performed Operation Date: 02/12/25 09:00 Actual Procedures p Transurethral Resection Prostate(Not Applicable) - Kirk Shah, DO Hospital Course (1) BPH with urinary obstruction: (2) S/P urological surgery: - Pt POD#1 s/p TURP with Dr. Shah - Doing well, progressing as expected - Afebrile, hemodynamically stable - Lab work reviewed - creatinine 1.25, WBC 8.49, Hgb 10.5 - Tolerating PO diet - 3 way Hwang catheter intact, patent and draining clear urine with CBI on slow - CBI clamped during exam this morning, nursing aware - will reassess later this AM - Maintain Hwang catheter - Anticipate home with Hwang catheter later today presuming urine appropriate and he continues to progress as expected - Continue course of antibiotics as directed - Expected clinical course reviewed, all questions answered - Will arrange outpatient follow-up with our service for voiding trial and path review - Appreciate assistance from hospital medicine service - Urine remains clear yellow with CBI clamped, patient ready for discharge - orders placed, questions answered Total Time Total Time Spent Total Time Spent (In Minutes): 25 Discharge Plan Discharge Items Patient Disposition: Home - Self-Care Reason For Visit: Other Retention of Urine/Benign Prostatic Hyperpla Discharge Diagnosis: BPH with obstruction, urinary retention Activity: Per Instructions section Lifting: No more than 25 pounds Bathing Comment: Okay to shower after discharge, no tub bath or soaking Sexual Activity: Wait until after follow-up appointment Exercise/Sports: Wait until after follow-up appointment Driving/Machine Use: Resume 1 day after discharge Non-emergency contact: Surgeon and Urologist Call non-emergency contact if: your pain is not controlled, you have a fever and your temperature is above 101 Follow-up/Referrals: Catarina Johnson DO [Primary Care Provider] - Diet: Regular Addtl Attending Provider Instructions: Please take all medications as prescribed and keep all follow-ups as scheduled. Please call our office at [phone] with any questions, concerns or need to reschedule appointments for any reason. We are happy to assist you. Tips for your recovery at home: Dont be alarmed by brownish or reddish blood or clots in your urine. This is a result of the procedure. This may occur off and on for weeks to months after the procedure but should continue to improve. Drink plenty of fluids during the day (enough to keep your urine very light colored). This will help keep a healthy flow of urine. Do not lift >25 lbs until your followup Avoid constipation. Please use a stool softener (Colace) for the first two weeks after your procedure Be sure to finish the antibiotics as prescribed. If you go home with a catheter, please wash tubing where it enters your body twice daily with mild soap (Dove or Dial). Once your catheter is removed, expect some blood in your urine and some burning when you urinate. You should have an appointment to have this removed, if you do not please call our office to arrange. Pending Studies at Discharge: Yes (pathology) Stand-Alone Forms: [facility], Smoking Cessation Medications and DC Order Prescriptions: Continued ondansetron HCl 8 mg tablet 8 mg PO Q8H PRN (Reason: Nausea And Vomiting) pantoprazole 20 mg tablet,delayed release (DR/EC) 20 mg PO PM Qty: 90 3RF Repatha SureClick 140 mg/mL pen injector 140 mg subcut Q14D Qty: 2 3RF alprazolam 0.25 mg tablet 0.25 mg PO HS PRN (Reason: sleep) Qty: 90 0RF peg 3350-electrolytes [Golytely] 236-22.74-6.74 -5.86 gram recon soln 240 ml PO Q10M Qty: 4000 0RF Rx Instructions: Take per split dose instructions ciprofloxacin HCl [Cipro] 500 mg tablet 500 mg PO BID Qty: 14 0RF qmqu-xugaf-qoc-[id number]-hyal-sae bor 750 mg-100 mg- 25 mcg tablet 1 tab PO QAM Patient Comments: 01/05- otc unable to verify zinc acetate 25 mg (zinc) capsule 25 mg PO HS magnesium glycinate 118 mg magnesium capsule 400 mg PO QAM Centrum Silver 0.4 mg-300 mcg- 250 mcg tablet 1 tab PO QAM Patient Comments: 01/05- otc unable to verify loratadine [Claritin] 10 mg tablet 10 mg PO HS Patient Comments: 01/05- otc unable to verify ascorbic acid (vitamin C) 1,000 mg capsule 1 g PO BID aspirin [Adult Aspirin Regimen] 81 mg tablet,delayed release (DR/EC) 81 mg PO QAM coenzyme Q10 [Co Q-10] 400 mg capsule 400 mg PO HS albuterol sulfate 90 mcg/actuation HFA aerosol inhaler 2 inh inhalation QID PRN (Reason: shortness of breath or wheezing) Qty: 8.5 2RF lactulose 10 gram/15 mL solution 30 ml PO BID PRN (Reason: Constipation) Rx Instructions: Patient is only taking 20ml bid PRN Held metoprolol succinate 50 mg tablet extended release 24 hr 50 mg PO DAILY Qty: 90 3RF Hold Instructions: Resume on 03/06/25. tamsulosin 0.4 mg capsule 0.4 mg PO DAILY Qty: 30 11RF Hold Instructions: Resume on 03/02/25. potassium chloride 10 mEq capsule, extended release 10 meq PO DAILY PRN (Reason: take with furosemide) Qty: 90 3RF Hold Instructions: Resume on 03/06/25. furosemide 20 mg tablet 20 mg PO DAILY PRN (Reason: leg edema) Qty: 30 2RF Hold Instructions: Resume on 03/06/25. Discharge Orders: Discharge Order (Routine); Ordered 02/13/25 Ordered By: Krista Garza/Other Patient Handouts: Urinary Catheter Bag Empty Clean, Leg Bag Care Dc, Hwang Catheter Male Ch Admission Data Admit Date/Time: 02/12/25 08:32 Attending Provider: Kirk Shah Admit Provider: Shah,Kirk H. Primary Care Provider: Catarina Johnson Other Providers: Kaleb Benoit Other Interventions: Discharge Summary Assessment (RN) Last Done: 02/13/25 10:24 Coding Level of Care Code 53851 IN/OBS DISCH 30 MIN/LESS Diagnoses BPH with urinary obstruction N40.1; N13.8 S/P urological surgery Z98.890
== END 2025-02-13 11:51 | disposition home or self-care (01) ==
LOC: ASU 07:33 → PACUINP 07:33 → 2W 14:05